=== PATIENT | male | born 1955 | race Caucasian/White ===

== ENCOUNTER 2016-11-29 13:03 | Outpatient (RCR) | payer BC ==
[~2016-11-29 13:03] MED LIST changes: +METO-272 PO; -METO-370 PO; -QUIN40TA14 PO; +QUIN40TA25 PO; -QUIN5TAB11 PO; +QUIN5TAB20 PO
== END 2017-02-19 | disposition home or self-care (01) ==
LOC: CARD 13:03
PROVIDERS: ATTEND Physician Assistant
DX: E78.2 Mixed hyperlipidemia; I50.1 Left ventricular failure, unspecified; I48.0 Paroxysmal atrial fibrillation; I11.0 Hypertensive heart disease with heart failure
CPT/HCPCS: 93225; 93226

== ENCOUNTER → 2016-11-29 | Outpatient (CLI) | payer BC ==
[~2016-11-29] MED LIST: BUSP7.5T5 PO; CEFD300C3 PO; DRON400T2 PO; ENXP100I SC; HYDR-2890 PO; HYDR25TA4 PO; METO-370 PO; MULT-406 PO; NAPR220T76 PO; PRAV20TA3 PO; QUIN40TA PO; QUIN40TA14 PO; QUIN5TAB11 PO; RIVA20TA PO; SOTA80TA PO; SOTA80TA22 PO; Sotalol Hcl PO; THIA100T7 PO; WRF5T PO
== END ==
LOC: CARD 12:58
PROVIDERS: ATTEND Physician Assistant
DX: I48.0 Paroxysmal atrial fibrillation; I10 Essential (primary) hypertension; I50.1 Left ventricular failure, unspecified; E78.2 Mixed hyperlipidemia
CPT/HCPCS: 93306

== ENCOUNTER → 2017-09-05 | Outpatient (CLI) | payer BC, OTHER ==
[~2017-09-05] MED LIST changes: -METO-272 PO; +METO-370 PO; +QUIN40TA14 PO; -QUIN40TA25 PO; +QUIN5TAB11 PO; -QUIN5TAB20 PO; -THIA100T7 PO; +THIA100T80 PO
[2017-09-05 08:07] LABS: CHOLESTEROL 168 MG/DL (< 200); HDL CHOLESTEROL 47 MG/DL (40-60)
[2017-09-05 08:24] LABS: TRIGLYCERIDES 120 MG/DL (<150); VLDL CHOLESTEROL 24 MG/DL (5-40)
[2017-09-05 12:34] LABS: ALANINE AMINOTRANSFERASE 25 U/L (0-55); ALBUMIN 4.2 GM/DL (3.2-4.5); ALKALINE PHOSPHATASE 60 U/L (40-136); BILIRUBIN,TOTAL 0.4 MG/DL (0.1-1.0); BUN/CREATININE RATIO 10; CALCIUM 9.7 MG/DL (8.5-10.1); CARBON DIOXIDE 22 MMOL/L (21-32); CHLORIDE 107 MMOL/L (98-107); CREATININE SERUM 0.87 MG/DL (0.60-1.30); GFR ESTIMATED > 60; GLUCOSE 112 MG/DL (70-105); POTASSIUM 4.4 MMOL/L (3.6-5.0); SODIUM 141 MMOL/L (135-145); TOTAL PROTEIN 7.6 GM/DL (6.4-8.2)
== END ==
LOC: LAB 07:32
PROVIDERS: ATTEND Internal Medicine Interventional Cardiology
DX: E78.2 Mixed hyperlipidemia (principal)
CPT/HCPCS: 36415; 80053; 80061

== ENCOUNTER → 2017-09-16 | Day surgery (SDC) | payer BC ==
[~2017-09-16] VITALS: Ht 180.3 cm; Wt 88.0 kg
[~2017-09-16] MED LIST changes: +LIDOCAINE 1% INJ 20 ML 20 ML VIAL ONE; +THIA100T7 PO; -THIA100T80 PO
--- OUTSIDE RECORDS SUMMARY | 2017-09-16 07:26 | XMS REPORT | Clinical Summary ---
Author Author [facility] Organization [facility] Address Unknown Phone Unavailable Care Team Providers Care Gas Plant Technician Name Role Phone Nava Fletcher MD PCP Source Comments Some departments are not documenting in the electronic medical record. If you do not see the information that you expected, contact Release of Information in the Health Information Management department at [phone] for further assistance in locating additional records.[facility] Allergies Active Allergy Reactions Severity Noted Date Comments Seasonal Allergies EYE IRRITATION, Low 03/03/2016 RHINORRHEA, SNEEZING, COUGH Current Medications Prescription Sig. Disp. Refills Start End Date Status Date dronedarone (MULTAQ) 400 Take 400 mg by mouth Active mg tablet twice daily with meals. rivaroxaban (XARELTO) 20 Take 20 mg by mouth daily Active mg tablet with dinner. Take with food. metoprolol XL (TOPROL XL) Take 50 mg by mouth Active 50 mg extended release daily. tablet quinapril (ACCUPRIL) 40 Take 40 mg by mouth at Active mg tablet bedtime daily. hydroCHLOROthiazide Take 25 mg by mouth every Active (HYDRODIURIL) 25 mg morning. tablet pravastatin (PRAVACHOL) Take 20 mg by mouth at Active 20 mg tablet bedtime daily. MULTIVITAMIN PO Take by mouth. Active busPIRone (BUSPAR) 10 mg Take 10 mg by mouth Active tablet daily. Active Problems No known active problems Family History Medical History Relation Name Comments Diabetes Father Heart Attack Father Cancer Mother Cancer Sister Relation Name Status Comments Father heart attack,leg amputated (Age 74) Maternal Grandfather (Age 80s) Maternal Grandmother (Age 99) Mother cancer Lymph nodes (Age 60) Paternal Grandfather Paternal Grandmother Sister leukemia (Age 25) Social History Tobacco Use Types Packs/Day Years Used Date Former Smoker Quit: 12/04/2015 Smokeless Tobacco: Never Used Alcohol Use Drinks/Week oz/Week Comments No Sex Assigned at Date Recorded Not on file Last Filed Vital Signs Vital Sign Reading Time Taken Blood Pressure 130/84 03/24/2016 7:36 AM CDT Pulse 71 03/24/2016 7:36 AM CDT Temperature - - Respiratory Rate - - Oxygen Saturation - - Inhaled Oxygen - - Concentration Weight 82.3 kg (181 lb 6.4 oz) 03/24/2016 7:36 AM CDT Height 180.3 cm (5' 11") 03/24/2016 7:36 AM CDT Body Mass Index 25.3 03/24/2016 7:36 AM CDT Plan of Treatment Health Maintenance Due Date Last Done Comments HEPATITIS C SCREENING 1956 PHYSICAL (COMPREHENSIVE) 12/04/1963 EXAM PERTUSSIS VACCINE 12/04/1967 HIV SCREENING 12/04/1971 TETANUS VACCINE 1973 COLORECTAL CANCER 2006 SCREENING SHINGLES VACCINE 2016 INFLUENZA VACCINE 02/20/2018 Results Not on filefrom Last 3 Months
--- OUTSIDE RECORDS SUMMARY | 2017-09-16 07:29 | XMS REPORT | Continuity of Care Document ---
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 QUALITY SPECIALIST Ot Z86.718 PERSONAL HISTORY OF OTHER VENOUS THROMBO 09/05/2017 NAVA FLETCHER DO Ot I82.492 ACUTE EMBOLISM AND THROMBOSIS OF DEEP VE 09/05/2017 JULIEN DAMON Ot E66.9 OBESITY, UNSPECIFIED 09/05/2017 JULIEN DAMON Ot I10 ESSENTIAL (PRIMARY) HYPERTENSION 09/05/2017 JULIEN DAMON Ot I48.0 PAROXYSMAL ATRIAL FIBRILLATION 09/05/2017 JULIEN DAMON Ot Z68.30 BODY MASS INDEX (BMI) 30.0-30.9, ADULT 09/05/2017 HALEY BAUMAN MD Ot I10 ESSENTIAL (PRIMARY) HYPERTENSION 09/05/2017 HALEY BAUMAN MD Ot I48.0 PAROXYSMAL ATRIAL FIBRILLATION 09/05/2017 JULIEN DAMON Ot E78.2 MIXED HYPERLIPIDEMIA 09/05/2017 JULIEN DAMON Ot I10 ESSENTIAL (PRIMARY) HYPERTENSION 09/05/2017 JULIEN DAMON Ot I48.0 PAROXYSMAL ATRIAL FIBRILLATION 09/05/2017 JULIEN DAMON Ot I50.1 LEFT VENTRICULAR FAILURE 09/05/2017 JULIEN DAMON Ot E78.2 MIXED HYPERLIPIDEMIA 09/05/2017 JULIEN DAMON Ot I11.0 HYPERTENSIVE HEART DISEASE WITH HEART FA 09/05/2017 JULIEN DAMON Ot I48.0 PAROXYSMAL ATRIAL FIBRILLATION 09/05/2017 JULIEN DAMON Ot I50.1 LEFT VENTRICULAR FAILURE, UNSPECIFIED 09/06/2017 Pavan WESTON MD Ot E78.2 MIXED HYPERLIPIDEMIA Procedures There is no data. Results Test Result Range Automated blood complete blood count (hemogram) panel - 01/14/16 08:08 Blood leukocytes automated count (number/volume) 5.4 10*3/uL 4.3-11.0 Blood erythrocytes automated count (number/volume) 4.75 10*6/uL 4.35-5.85 Venous blood hemoglobin measurement (mass/volume) 15.5 g/dL 13.3-17.7 Blood hematocrit (volume fraction) 45 % 40-54 Automated erythrocyte mean corpuscular volume 95 [foz_us] 80-99 Automated erythrocyte mean corpuscular hemoglobin (mass per erythrocyte) 33 pg 25-34 Automated erythrocyte mean corpuscular hemoglobin concentration measurement ( mass/volume) 35 g/dL 32-36 Automated erythrocyte distribution width ratio 12.4 % 10.0-14.5 Automated blood platelet count (count/volume) 196 10*3/uL 130-400 Automated blood platelet mean volume measurement 10.4 [foz_us] 7.4-10.4 Complete urinalysis with reflex to culture - 01/14/16 08:08 Urine color determination YELLOW NRG Urine clarity determination CLEAR NRG Urine pH measurement by test strip 7 5-9 Specific gravity of urine by test strip 1.010 1.016- 1.022 Urine protein assay by test strip, semi-quantitative NEGATIVE NEGATIVE Urine glucose detection by automated test strip NEGATIVE NEGATIVE Erythrocytes detection in urine sediment by light microscopy 1+ NEGATIVE Urine ketones detection by automated test strip NEGATIVE NEGATIVE Urine nitrite detection by test strip NEGATIVE NEGATIVE Urine total bilirubin detection by test strip NEGATIVE NEGATIVE Urine urobilinogen measurement by automated test strip (mass/volume) NORMAL NORMAL Urine leukocyte esterase detection by dipstick 1+ NEGATIVE Automated urine sediment erythrocyte count by microscopy (number/high power field) [HPF] NRG Automated urine sediment leukocyte count by microscopy (number/high power field ) [HPF] NRG Bacteria detection in urine sediment by light microscopy TRACE NRG Crystals detection in urine sediment by light microscopy NONE NRG Casts detection in urine sediment by light microscopy NONE NRG Mucus detection in urine sediment by light microscopy NEGATIVE NRG Complete urinalysis with reflex to culture NO NRG Comprehensive metabolic panel - 01/14/16 08:08 Serum or plasma sodium measurement (moles/volume) 139 mmol/L 135-145 Serum or plasma potassium measurement (moles/volume) 4.0 mmol/L 3.6-5.0 Serum or plasma chloride measurement (moles/volume) 107 mmol/L 98-107 Carbon dioxide 22 mmol/L 21-32 Serum or plasma anion gap determination (moles/volume) 10 mmol/L 5-14 Serum or plasma urea nitrogen measurement (mass/volume) 13 mg/dL 7-18 Serum or plasma creatinine measurement (mass/volume) 0.89 mg/dL 0.60-1.30 Serum or plasma urea nitrogen/creatinine mass ratio 15 NRG Serum or plasma creatinine measurement with calculation of estimated glomerular filtration rate > NRG Serum or plasma glucose measurement (mass/volume) 105 mg/dL 70-105 Serum or plasma calcium measurement (mass/volume) 9.4 mg/dL 8.5-10.1 Serum or plasma total bilirubin measurement (mass/volume) 0.4 mg/dL 0.1-1.0 Serum or plasma alkaline phosphatase measurement (enzymatic activity/volume) 51 U/L 40-136 Serum or plasma aspartate aminotransferase measurement (enzymatic activity/ volume) 25 U/L 5-34 Serum or plasma alanine aminotransferase measurement (enzymatic activity/volume ) 24 U/L 0-55 Serum or plasma protein measurement (mass/volume) 6.9 g/dL 6.4-8.2 Serum or plasma albumin measurement (mass/volume) 4.1 g/dL 3.2-4.5 Lipid 1996 panel - 01/14/16 08:08 Serum or plasma triglyceride measurement (mass/volume) 78 mg/dL <150 Serum or plasma cholesterol measurement (mass/volume) 200 mg/dL < 200 Serum or plasma cholesterol in HDL measurement (mass/volume) 51 mg/ dL 40-60 Cholesterol in LDL [mass/volume] in serum or plasma by direct assay 135 mg/dL 1-129 Serum or plasma cholesterol in VLDL measurement (mass/volume) 16 mg/ dL 5-40 PT panel in platelet poor plasma by coagulation assay - 01/14/16 08:08 Prothrombin time (PT) in platelet poor plasma by coagulation assay 15.6 s 12.2-14.7 INR in platelet poor plasma or blood by coagulation assay 1.3 0.8-1.4 Activated partial thromboplastin time (aPTT) in platelet poor plasma bycoagulation assay - 01/14/16 08:08 Activated partial thromboplastin time (aPTT) in platelet poor plasma bycoagulation assay 33 s 24-35 Automated blood complete blood count (hemogram) panel - 03/31/16 08:45 Blood leukocytes automated count (number/volume) 6.2 10*3/uL 4.3-11.0 Blood erythrocytes automated count (number/volume) 4.81 10*6/uL 4.35-5.85 Venous blood hemoglobin measurement (mass/volume) 15.7 g/dL 13.3-17.7 Blood hematocrit (volume fraction) 46 % 40-54 Automated erythrocyte mean corpuscular volume 96 [foz_us] 80-99 Automated erythrocyte mean corpuscular hemoglobin (mass per erythrocyte) 33 pg 25-34 Automated erythrocyte mean corpuscular hemoglobin concentration measurement ( mass/volume) 34 g/dL 32-36 Automated erythrocyte distribution width ratio 12.4 % 10.0-14.5 Automated blood platelet count (count/volume) 229 10*3/uL 130-400 Automated blood platelet mean volume measurement 10.4 [foz_us] 7.4-10.4 PT panel in platelet poor plasma by coagulation assay - 03/31/16 08:45 Prothrombin time (PT) in platelet poor plasma by coagulation assay 16.1 s 12.2-14.7 INR in platelet poor plasma or blood by coagulation assay 1.3 0.8-1.4 Activated partial thromboplastin time (aPTT) in platelet poor plasma bycoagulation assay - 03/31/16 08:45 Activated partial thromboplastin time (aPTT) in platelet poor plasma bycoagulation assay 35 s 24-35 Comprehensive metabolic panel - 03/31/16 08:45 Serum or plasma sodium measurement (moles/volume) 139 mmol/L 135-145 Serum or plasma potassium measurement (moles/volume) 3.9 mmol/L 3.6-5.0 Serum or plasma chloride measurement (moles/volume) 103 mmol/L 98-107 Carbon dioxide 26 mmol/L 21-32 Serum or plasma anion gap determination (moles/volume) 10 mmol/L 5-14 Serum or plasma urea nitrogen measurement (mass/volume) 19 mg/dL 7-18 Serum or plasma creatinine measurement (mass/volume) 1.04 mg/dL 0.60-1.30 Serum or plasma urea nitrogen/creatinine mass ratio 18 NRG Serum or plasma creatinine measurement with calculation of estimated glomerular filtration rate > NRG Serum or plasma glucose measurement (mass/volume) 86 mg/dL 70-105 Serum or plasma calcium measurement (mass/volume) 9.5 mg/dL 8.5-10.1 Serum or plasma total bilirubin measurement (mass/volume) 0.5 mg/dL 0.1-1.0 Serum or plasma alkaline phosphatase measurement (enzymatic activity/volume) 50 U/L 40-136 Serum or plasma aspartate aminotransferase measurement (enzymatic activity/ volume) 29 U/L 5-34 Serum or plasma alanine aminotransferase measurement (enzymatic activity/volume ) 35 U/L 0-55 Serum or plasma protein measurement (mass/volume) 7.8 g/dL 6.4-8.2 Serum or plasma albumin measurement (mass/volume) 4.5 g/dL 3.2-4.5 Methicillin resistant Staphylococcus aureus (MRSA) screening culture - 08:45 Methicillin resistant Staphylococcus aureus (MRSA) screening culture NEG NRG Automated blood complete blood count (hemogram) panel - 05/04/16 08:52 Blood leukocytes automated count (number/volume) 6.7 10*3/uL 4.3-11.0 Blood erythrocytes automated count (number/volume) 4.44 10*6/uL 4.35-5.85 Venous blood hemoglobin measurement (mass/volume) 14.6 g/dL 13.3-17.7 Blood hematocrit (volume fraction) 43 % 40-54 Automated erythrocyte mean corpuscular volume 96 [foz_us] 80-99 Automated erythrocyte mean corpuscular hemoglobin (mass per erythrocyte) 33 pg 25-34 Automated erythrocyte mean corpuscular hemoglobin concentration measurement ( mass/volume) 34 g/dL 32-36 Automated erythrocyte distribution width ratio 12.3 % 10.0-14.5 Automated blood platelet count (count/volume) 216 10*3/uL 130-400 Automated blood platelet mean volume measurement 9.9 [foz_us] 7.4-10.4 PT panel in platelet poor plasma by coagulation assay - 05/04/16 08:52 Prothrombin time (PT) in platelet poor plasma by coagulation assay 15.0 s 12.2-14.7 INR in platelet poor plasma or blood by coagulation assay 1.2 0.8-1.4 Activated partial thromboplastin time (aPTT) in platelet poor plasma bycoagulation assay - 05/04/16 08:52 Activated partial thromboplastin time (aPTT) in platelet poor plasma bycoagulation assay 34 s 24-35 Comprehensive metabolic panel - 05/04/16 08:52 Serum or plasma sodium measurement (moles/volume) 139 mmol/L 135-145 Serum or plasma potassium measurement (moles/volume) 3.8 mmol/L 3.6-5.0 Serum or plasma chloride measurement (moles/volume) 106 mmol/L 98-107 Carbon dioxide 22 mmol/L 21-32 Serum or plasma anion gap determination (moles/volume) 11 mmol/L 5-14 Serum or plasma urea nitrogen measurement (mass/volume) 15 mg/dL 7-18 Serum or plasma creatinine measurement (mass/volume) 0.85 mg/dL 0.60-1.30 Serum or plasma urea nitrogen/creatinine mass ratio 18 NRG Serum or plasma creatinine measurement with calculation of estimated glomerular filtration rate > NRG Serum or plasma glucose measurement (mass/volume) 106 mg/dL 70-105 Serum or plasma calcium measurement (mass/volume) 9.5 mg/dL 8.5-10.1 Serum or plasma total bilirubin measurement (mass/volume) 0.3 mg/dL 0.1-1.0 Serum or plasma alkaline phosphatase measurement (enzymatic activity/volume) 49 U/L 40-136 Serum or plasma aspartate aminotransferase measurement (enzymatic activity/ volume) 24 U/L 5-34 Serum or plasma alanine aminotransferase measurement (enzymatic activity/volume ) 21 U/L 0-55 Serum or plasma protein measurement (mass/volume) 6.9 g/dL 6.4-8.2 Serum or plasma albumin measurement (mass/volume) 4.1 g/dL 3.2-4.5 Magnesium - 05/04/16 08:52 Magnesium 2.1 mg/dL 1.8-2.4 THYROID STIMULATING HORMONE - 05/04/16 08:52 THYROID STIMULATING HORMONE 1.46 u[iU]/mL 0.35-4.94 Complete blood count (CBC) with automated white blood cell (WBC) differential - 05/05/16 05:22 Blood leukocytes automated count (number/volume) 6.9 10*3/uL 4.3-11.0 Blood erythrocytes automated count (number/volume) 4.71 10*6/uL 4.35-5.85 Venous blood hemoglobin measurement (mass/volume) 15.5 g/dL 13.3-17.7 Blood hematocrit (volume fraction) 45 % 40-54 Automated erythrocyte mean corpuscular volume 96 [foz_us] 80-99 Automated erythrocyte mean corpuscular hemoglobin (mass per erythrocyte) 33 pg 25-34 Automated erythrocyte mean corpuscular hemoglobin concentration measurement ( mass/volume) 34 g/dL 32-36 Automated erythrocyte distribution width ratio 12.4 % 10.0-14.5 Automated blood platelet count (count/volume) 255 10*3/uL 130-400 Automated blood platelet mean volume measurement 10.4 [foz_us] 7.4-10.4 Automated blood neutrophils/100 leukocytes 57 % 42-75 Automated blood lymphocytes/100 leukocytes 31 % 12-44 Blood monocytes/100 leukocytes 9 % 0-12 Automated blood eosinophils/100 leukocytes 3 % 0-10 Automated blood basophils/100 leukocytes 0 % 0-10 Blood neutrophils automated count (number/volume) 3.9 10*3 1.8-7.8 Blood lymphocytes automated count (number/volume) 2.1 10*3 1.0-4.0 Blood monocytes automated count (number/volume) 0.6 10*3 0.0-1.0 Automated eosinophil count 0.2 10*3/uL 0.0-0.3 Automated blood basophil count (count/volume) 0.0 10*3/uL 0.0-0.1 Whole blood basic metabolic panel - 05/05/16 05:22 Serum or plasma sodium measurement (moles/volume) 138 mmol/L 135-145 Serum or plasma potassium measurement (moles/volume) 3.9 mmol/L 3.6-5.0 Serum or plasma chloride measurement (moles/volume) 105 mmol/L 98-107 Carbon dioxide 23 mmol/L 21-32 Serum or plasma anion gap determination (moles/volume) 10 mmol/L 5-14 Serum or plasma urea nitrogen measurement (mass/volume) 16 mg/dL 7-18 Serum or plasma creatinine measurement (mass/volume) 0.84 mg/dL 0.60-1.30 Serum or plasma urea nitrogen/creatinine mass ratio 19 NRG Serum or plasma creatinine measurement with calculation of estimated glomerular filtration rate > NRG Serum or plasma glucose measurement (mass/volume) 92 mg/dL 70-105 Serum or plasma calcium measurement (mass/volume) 9.4 mg/dL 8.5-10.1 Serum or plasma phosphate measurement (mass/volume) - 05/05/16 05:22 Serum or plasma phosphate measurement (mass/volume) 3.4 mg/dL 2.3-4.7 Magnesium - 05/05/16 05:22 Magnesium 2.2 mg/dL 1.8-2.4 Complete blood count (CBC) with automated white blood cell (WBC) differential - 05/06/16 04:15 Blood leukocytes automated count (number/volume) 8.1 10*3/uL 4.3-11.0 Blood erythrocytes automated count (number/volume) 4.70 10*6/uL 4.35-5.85 Venous blood hemoglobin measurement (mass/volume) 15.2 g/dL 13.3-17.7 Blood hematocrit (volume fraction) 45 % 40-54 Automated erythrocyte mean corpuscular volume 96 [foz_us] 80-99 Automated erythrocyte mean corpuscular hemoglobin (mass per erythrocyte) 32 pg 25-34 Automated erythrocyte mean corpuscular hemoglobin concentration measurement ( mass/volume) 34 g/dL 32-36 Automated erythrocyte distribution width ratio 12.3 % 10.0-14.5 Automated blood platelet count (count/volume) 234 10*3/uL 130-400 Automated blood platelet mean volume measurement 10.4 [foz_us] 7.4-10.4 Automated blood neutrophils/100 leukocytes 55 % 42-75 Automated blood lymphocytes/100 leukocytes 32 % 12-44 Blood monocytes/100 leukocytes 10 % 0-12 Automated blood eosinophils/100 leukocytes 3 % 0-10 Automated blood basophils/100 leukocytes 1 % 0-10 Blood neutrophils automated count (number/volume) 4.4 10*3 1.8-7.8 Blood lymphocytes automated count (number/volume) 2.6 10*3 1.0-4.0 Blood monocytes automated count (number/volume) 0.8 10*3 0.0-1.0 Automated eosinophil count 0.2 10*3/uL 0.0-0.3 Automated blood basophil count (count/volume) 0.0 10*3/uL 0.0-0.1 Whole blood basic metabolic panel - 05/06/16 04:15 Serum or plasma sodium measurement (moles/volume) 138 mmol/L 135-145 Serum or plasma potassium measurement (moles/volume) 4.1 mmol/L 3.6-5.0 Serum or plasma chloride measurement (moles/volume) 107 mmol/L 98-107 Carbon dioxide 22 mmol/L 21-32 Serum or plasma anion gap determination (moles/volume) 9 mmol/L 5-14 Serum or plasma urea nitrogen measurement (mass/volume) 19 mg/dL 7-18 Serum or plasma creatinine measurement (mass/volume) 0.85 mg/dL 0.60-1.30 Serum or plasma urea nitrogen/creatinine mass ratio 22 NRG Serum or plasma creatinine measurement with calculation of estimated glomerular filtration rate > NRG Serum or plasma glucose measurement (mass/volume) 97 mg/dL 70-105 Serum or plasma calcium measurement (mass/volume) 9.2 mg/dL 8.5-10.1 Serum or plasma phosphate measurement (mass/volume) - 05/06/16 04:15 Serum or plasma phosphate measurement (mass/volume) 4.2 mg/dL 2.3-4.7 Magnesium - 05/06/16 04:15 Magnesium 2.3 mg/dL 1.8-2.4 Automated blood complete blood count (hemogram) panel - 05/13/16 08:33 Blood leukocytes automated count (number/volume) 6.8 10*3/uL 4.3-11.0 Blood erythrocytes automated count (number/volume) 4.39 10*6/uL 4.35-5.85 Venous blood hemoglobin measurement (mass/volume) 14.4 g/dL 13.3-17.7 Blood hematocrit (volume fraction) 42 % 40-54 Automated erythrocyte mean corpuscular volume 96 [foz_us] 80-99 Automated erythrocyte mean corpuscular hemoglobin (mass per erythrocyte) 33 pg 25-34 Automated erythrocyte mean corpuscular hemoglobin concentration measurement ( mass/volume) 34 g/dL 32-36 Automated erythrocyte distribution width ratio 12.4 % 10.0-14.5 Automated blood platelet count (count/volume) 214 10*3/uL 130-400 Automated blood platelet mean volume measurement 10.6 [foz_us] 7.4-10.4 PT panel in platelet poor plasma by coagulation assay - 05/13/16 08:33 Prothrombin time (PT) in platelet poor plasma by coagulation assay 16.1 s 12.2-14.7 INR in platelet poor plasma or blood by coagulation assay 1.3 0.8-1.4 Activated partial thromboplastin time (aPTT) in platelet poor plasma bycoagulation assay - 05/13/16 08:33 Activated partial thromboplastin time (aPTT) in platelet poor plasma bycoagulation assay 35 s 24-35 Comprehensive metabolic panel - 05/13/16 08:33 Serum or plasma sodium measurement (moles/volume) 142 mmol/L 135-145 Serum or plasma potassium measurement (moles/volume) 4.3 mmol/L 3.6-5.0 Serum or plasma chloride measurement (moles/volume) 110 mmol/L 98-107 Carbon dioxide 25 mmol/L 21-32 Serum or plasma anion gap determination (moles/volume) 7 mmol/L 5-14 Serum or plasma urea nitrogen measurement (mass/volume) 15 mg/dL 7-18 Serum or plasma creatinine measurement (mass/volume) 0.97 mg/dL 0.60-1.30 Serum or plasma urea nitrogen/creatinine mass ratio 15 NRG Serum or plasma creatinine measurement with calculation of estimated glomerular filtration rate > NRG Serum or plasma glucose measurement (mass/volume) 109 mg/dL 70-105 Serum or plasma calcium measurement (mass/volume) 9.1 mg/dL 8.5-10.1 Serum or plasma total bilirubin measurement (mass/volume) 0.3 mg/dL 0.1-1.0 Serum or plasma alkaline phosphatase measurement (enzymatic activity/volume) 55 U/L 40-136 Serum or plasma aspartate aminotransferase measurement (enzymatic activity/ volume) 26 U/L 5-34 Serum or plasma alanine aminotransferase measurement (enzymatic activity/volume ) 25 U/L 0-55 Serum or plasma protein measurement (mass/volume) 6.6 g/dL 6.4-8.2 Serum or plasma albumin measurement (mass/volume) 3.9 g/dL 3.2-4.5 Methicillin resistant Staphylococcus aureus (MRSA) screening culture - 08:33 Methicillin resistant Staphylococcus aureus (MRSA) screening culture NEG NRG Comprehensive metabolic panel - 09/05/17 07:45 Serum or plasma sodium measurement (moles/volume) 141 mmol/L 135-145 Serum or plasma potassium measurement (moles/volume) 4.4 mmol/L 3.6-5.0 Serum or plasma chloride measurement (moles/volume) 107 mmol/L 98-107 Carbon dioxide 22 mmol/L 21-32 Serum or plasma anion gap determination (moles/volume) 12 mmol/L 5-14 Serum or plasma urea nitrogen measurement (mass/volume) 9 mg/dL 7-18 Serum or plasma creatinine measurement (mass/volume) 0.87 mg/dL 0.60-1.30 Serum or plasma urea nitrogen/creatinine mass ratio 10 NRG Serum or plasma creatinine measurement with calculation of estimated glomerular filtration rate > NRG Serum or plasma glucose measurement (mass/volume) 112 mg/dL 70-105 Serum or plasma calcium measurement (mass/volume) 9.7 mg/dL 8.5-10.1 Serum or plasma total bilirubin measurement (mass/volume) 0.4 mg/dL 0.1-1.0 Serum or plasma alkaline phosphatase measurement (enzymatic activity/volume) 60 U/L 40-136 Serum or plasma aspartate aminotransferase measurement (enzymatic activity/ volume) 38 U/L 5-34 Serum or plasma alanine aminotransferase measurement (enzymatic activity/volume ) 25 U/L 0-55 Serum or plasma protein measurement (mass/volume) 7.6 g/dL 6.4-8.2 Serum or plasma albumin measurement (mass/volume) 4.2 g/dL 3.2-4.5 Lipid 1996 panel - 09/05/17 07:45 Serum or plasma triglyceride measurement (mass/volume) 120 mg/dL <150 Serum or plasma cholesterol measurement (mass/volume) 168 mg/dL < 200 Serum or plasma cholesterol in HDL measurement (mass/volume) 47 mg/ dL 40-60 Cholesterol in LDL [mass/volume] in serum or plasma by direct assay 102 mg/dL 1-129 Serum or plasma cholesterol in VLDL measurement (mass/volume) 24 mg/ dL 5-40 Encounters ACCT No. Visit Date/Time Discharge Status Pt. Type Provider Facility Loc./Unit Complaint [id number] 09/05/2017 07:32:00 09/05/2017 23:59:59 CLS Outpatient Pavan WESTON MD [facility] LAB E78.2 [id number] 02/20/2017 14:15:00 02/20/2017 23:59:59 CLS Preadmit JULIEN DAMON [facility] CARD AFIB,CHRONIC CHF [id number] 11/29/2016 13:03:00 02/19/2017 00:01:00 DIS Outpatient JULIEN DAMON [facility] CARD AFIB, CHRONIC CHF [id number] 11/29/2016 12:58:00 11/29/2016 23:59:59 CLS Outpatient JULIEN DAMON [facility] CARD AFIB, CHRONIC CHF [id number] 05/13/2016 08:03:00 05/13/2016 11:26:00 DIS Outpatient Pavan WESTON MD [facility] CATH AFIB [id number] 05/04/2016 08:30:00 05/06/2016 12:00:00 DIS Inpatient HALEY BAUMAN MD [facility] ICU AFIB [id number] 03/31/2016 08:16:00 03/31/2016 15:40:00 DIS Outpatient HALEY BAUMAN MD [facility] CATH PAF,HTN [id number] 01/14/2016 07:40:00 01/15/2016 10:40:00 DIS Outpatient HALEY BAUMAN MD [facility] CATH AF,CARDIOMYOPATHY [id number] 12/19/2015 14:39:00 12/19/2015 23:59:59 CLS Outpatient HALEY BAUMAN MD [facility] CARD A-FIB; DVT; HTN; OBESITY [id number] 11/26/2015 08:26:00 11/26/2015 23:59:59 CLS Outpatient JULIEN DAMON [facility] CARD AFIB,DVT,HTN ,OBESITY [id number] 11/19/2015 11:09:00 11/19/2015 23:59:59 CLS Outpatient NAVA FLETCHER DO [facility] RAD DVT, EDEMA, LEG PAIN,ATRIAL FIBRILLATION [id number] 11/10/2015 16:47:00 11/10/2015 23:59:59 CLS Outpatient JENNIFER ALVAREZ APRN [facility] CARD LEG SWELLING, CARDIAC ARYTHMIA, HISTORY OF DVT [id number] 06/24/2014 15:30:00 06/24/2014 23:59:59 CLS Outpatient PRESTONNarayanDARRON ROA [facility] RAD HEMATURIA [id number] 10/03/2013 12:40:00 10/03/2013 23:59:59 CLS Outpatient HALEY BAUMAN MD [facility] CARD DVT,ADEMA LLE,HTN [id number] 09/25/2013 08:41:00 09/25/2013 23:59:59 CLS Outpatient HALEY BAUMAN MD [facility] LAB DVT,EDEMA OF LOWER LEG, HTN [id number] 10/10/2012 15:11:00 10/10/2012 23:59:59 CLS Outpatient NAVA FLETCHER DO [facility] RAD LEFT CALF SWELLING , HX OF DVT [id number] 12/01/2014 17:33:00 Document Registration [id number] 12/01/2014 17:33:00 Document Registration [id number] 12/01/2014 17:33:00 Document Registration [id number] 12/01/2014 17:32:00 Document Registration [id number] 02/18/2012 13:00:00 Document Registration [id number] 01/07/2012 13:35:00 Document Registration [id number] 11/23/2011 14:07:00 Document Registration [id number] 10/25/2011 17:55:00 Document Registration [id number] 08/10/2011 15:19:00 Document Registration [id number] 02/09/2010 08:44:00 Document Registration [id number] 06/29/2014 12:38:20 ACT Document Registration 05/201612/06/2016 16:02:10 12/06/2016 23:59:59 CLS Outpatient Nava Fletcher
[2017-09-16 07:57] VITALS: BP 134/84
--- NOTE | 2017-09-16 08:45 | Implantation of Loop Monitor ---
Implant of Loop Monitior PROCEDURE PHYSICIAN: Blue Chandra MD IMPLANTATION OF LOOP MONITOR REPORT DATE OF PROCEDURE: 09/16/17 ATTENDING PHYSICIAN: Dr. Lorne Chandra. REFERRING PHYSICIAN: PERFORMING PHYSICIAN: Dr. Lorne Chandra. INDICATION: Long-term surveillance of atrial fibrillation PREOP DIAGNOSIS: Long-term surveillance of atrial fibrillation POSTOP DIAGNOSIS: Atrial fibrillation, s/p implantation of loop recorder. PROCEDURE DETAILS: The patient is a 61 male with history of paroxysmal atrial fibrillation requiring long-term surveillance. Therefore implantable loop recorder was discussed and agreed with the patient. Informed consent was taken. All risks and complications were discussed at length. The patient was draped and prepped in the usual sterile fashion. Local anesthesia was lidocaine, which was given in the substernal area close to the 4th intercostal space. [employer] Linq Loop monitor was implanted according to the protocol. Steri-Strips were placed at the end of the procedure. There were no complications and the patient tolerated the procedure well. ANESTHESIA: Local anesthesia with lidocaine. COMPLICATIONS: None CONTRAST/FLUOROSCOPY: None CONCLUSION: 1. Successful implantation of loop monitor for tooth cutter surveillance of atrial fibrillation. 2. No complication and the patient tolerated the procedure well. Blue Chandra MD, RS, CCDS Cardiac Electrophysiology Pavan CHANDRA MD Sep 16, 2017 8:45 am
== END | disposition home or self-care (01) ==
LOC: CATH 07:23
PROVIDERS: ATTEND Internal Medicine Interventional Cardiology
DX: I48.0 Paroxysmal atrial fibrillation (principal); R00.1 Bradycardia, unspecified; I11.0 Hypertensive heart disease with heart failure; I50.9 Heart failure, unspecified; E78.2 Mixed hyperlipidemia; M79.605 Pain in left leg; Z86.718 Personal history of other venous thrombosis and embolism; Z79.01 Long term (current) use of anticoagulants; Z79.899 Other long term (current) drug therapy; Z87.891 Personal history of nicotine dependence
CPT/HCPCS: 33282

== ENCOUNTER → 2017-12-12 | Outpatient (CLI) | payer BC ==
[~2017-12-12] MED LIST changes: -LIDOCAINE 1% INJ 20 ML 20 ML VIAL ONE; -THIA100T7 PO; +THIA100T80 PO
[2017-12-12 07:44] LABS: ALANINE AMINOTRANSFERASE 17 U/L (0-55); ALBUMIN 3.9 GM/DL (3.2-4.5); ALKALINE PHOSPHATASE 62 U/L (40-136); BILIRUBIN,TOTAL 0.3 MG/DL (0.1-1.0); BUN/CREATININE RATIO 13; CALCIUM 9.5 MG/DL (8.5-10.1); CARBON DIOXIDE 26 MMOL/L (21-32); CHLORIDE 110 MMOL/L (98-107); CHOLESTEROL 160 MG/DL (< 200); CREATININE SERUM 0.83 MG/DL (0.60-1.30); GFR ESTIMATED > 60; GLUCOSE 115 MG/DL (70-105); HDL CHOLESTEROL 38 MG/DL (40-60); POTASSIUM 3.9 MMOL/L (3.6-5.0); SODIUM 142 MMOL/L (135-145); TOTAL PROTEIN 6.9 GM/DL (6.4-8.2); TRIGLYCERIDES 107 MG/DL (<150); VLDL CHOLESTEROL 21 MG/DL (5-40)
== END ==
LOC: LAB 07:14
PROVIDERS: ATTEND Physician Assistant
DX: I10 Essential (primary) hypertension (principal); E78.2 Mixed hyperlipidemia
CPT/HCPCS: 36415; 80053; 80061

== ENCOUNTER → 2018-06-05 | Outpatient (CLI) | payer BC | LOC: CARD 12:49 | PROVIDERS: ATTEND Internal Medicine Cardiovascular Disease | DX: I48.0 Paroxysmal atrial fibrillation (principal); I11.0 Hypertensive heart disease with heart failure; I50.9 Heart failure, unspecified; R00.1 Bradycardia, unspecified; I08.1 Rheumatic disorders of both mitral and tricuspid valves | CPT/HCPCS: 93306 ==

== ENCOUNTER → 2018-09-08 | Outpatient (CLI) | payer BC ==
[~2018-09-08] MED LIST changes: -RIVA20TA PO; +RIVA20TA2 PO
[2018-09-08 08:34] LABS: ALANINE AMINOTRANSFERASE 15 U/L (0-55); ALKALINE PHOSPHATASE 61 U/L (40-136); BILIRUBIN,TOTAL 0.3 MG/DL (0.1-1.0); BUN/CREATININE RATIO 13; CALCIUM 9.5 MG/DL (8.5-10.1); CARBON DIOXIDE 27 MMOL/L (21-32); CHLORIDE 106 MMOL/L (98-107); CHOLESTEROL 152 MG/DL (< 200); CREATININE SERUM 0.85 MG/DL (0.60-1.30); GFR ESTIMATED > 60; GLUCOSE 105 MG/DL (70-105); HDL CHOLESTEROL 41 MG/DL (40-60); POTASSIUM 4.1 MMOL/L (3.6-5.0); SODIUM 142 MMOL/L (135-145); TOTAL PROTEIN 6.9 GM/DL (6.4-8.2); TRIGLYCERIDES 63 MG/DL (<150); VLDL CHOLESTEROL 13 MG/DL (5-40)
== END ==
LOC: LAB 07:58
PROVIDERS: ATTEND Physician Assistant
DX: I10 Essential (primary) hypertension (principal); E78.2 Mixed hyperlipidemia
CPT/HCPCS: 36415; 80053; 80061

== ENCOUNTER → 2018-10-09 | Day surgery (SDC) | payer BC ==
[~2018-10-09] VITALS: Ht 177.8 cm; Wt 88.9 kg
[~2018-10-09] MED LIST changes: +ESCI10TA PO; +HEParin (CATH LAB) 0 ML IV ONE; +LIDOCAINE 1% INJ 20 ML 20 ML VIAL ONE; +NS IV 1000 ML 1,000 ML IV SCH; +NS IV 1000 ML 1,000 ML ONE; -SOTA80TA PO; +STL80T PO
--- OUTSIDE RECORDS SUMMARY | 2018-10-09 07:01 | XMS REPORT | Clinical Summary ---
Author Author [facility] Organization [facility] Address Unknown Phone Unavailable Care Team Providers Care Tour Agent Name Role Phone Nava Fletcher MD PCP Source Comments Some departments are not documenting in the electronic medical record. If you d o not see the information that you expected, contact Release of Information in [facility] [employer] Information Management department at [phone] for further assistan ce in locating additional records.[facility] Allergies Comments Active Allergy Reactions Severity Noted Date Seasonal Allergies EYE Low 03/03/2016 IRRITATION, RHINORRHEA, SNEEZING, COUGH Medications End Date Status Medication Sig Dispensed Refills Start Date Active dronedarone (MULTAQ) 400 Take 400 mg 0 mg tablet by mouth twice daily with meals. Active rivaroxaban (XARELTO) 20 Take 20 mg by 0 mg tablet mouth daily with dinner. Take with food. Active metoprolol XL (TOPROL XL) Take 50 mg by 0 50 mg extended release mouth daily. tablet Active quinapril (ACCUPRIL) 40 Take 40 mg by 0 mg tablet mouth at bedtime daily. Active hydroCHLOROthiazide Take 25 mg by 0 (HYDRODIURIL) 25 mg mouth every tablet morning. Active pravastatin (PRAVACHOL) Take 20 mg by 0 20 mg tablet mouth at bedtime daily. Active MULTIVITAMIN PO Take by 0 mouth. Active busPIRone (BUSPAR) 10 mg Take 10 mg by 0 tablet mouth daily. Active Problems No known active problems Family History Medical History Relation Name Comments Diabetes Father Heart Attack Father Cancer Mother Cancer Sister Relation Name Status Comments Father heart attack,leg amputated (Age 74) Maternal Grandfather (Age 80s) Maternal Grandmother (Age 99) Mother cancer Lymph nodes (Age 60) Paternal Grandfather Paternal Grandmother Sister leukemia (Age 25) Social History Date Tobacco Use Types Packs/Day Years Used Quit: 12/04/2015 Former Smoker Smokeless Tobacco: Never Used Alcohol Use Drinks/Week oz/Week Comments No Sex Assigned at Date Recorded Not on file Industry Job Start Date Occupation Not on file Not on file Not on file Travel End Travel History Travel Start No recent travel history available. Last Filed Vital Signs Time Taken Vital Sign Reading 03/24/2016 7:36 AM CDT Blood Pressure 130/84 03/24/2016 7:36 AM CDT Pulse 71 - Temperature - - Respiratory Rate - - Oxygen Saturation - - Inhaled Oxygen - Concentration 03/24/2016 7:36 AM CDT Weight 82.3 kg (181 lb 6.4 oz) 03/24/2016 7:36 AM CDT Height 180.3 cm (5' 11") 03/24/2016 7:36 AM CDT Body Mass Index 25.3 Plan of Treatment Health Maintenance Due Date Last Done Comments HEPATITIS C SCREENING 1956 PHYSICAL (COMPREHENSIVE) 12/04/1963 EXAM HIV SCREENING 12/04/1971 DTAP/TDAP VACCINES (1 - 1974 Tdap) COLORECTAL CANCER 2006 SCREENING SHINGLES RECOMBINANT 2006 VACCINE (1 of 2) INFLUENZA VACCINE 02/20/2019 Results Not on filefrom Last 3 Months Insurance Type Payer Benefit Subscriber ID Effective Phone Address Plan / Dates Group PPO [facility] xxxxxxxxxxxx 2016- PREF CARE Present BLUE Advance Directives Patient has advance care planning documents on file. For more information, ashia harvey contact: [facility] [address] [place] [address]
--- OUTSIDE RECORDS SUMMARY | 2018-10-09 07:03 | XMS REPORT | Continuity of Care Document ---
Author Organization Unknown Address Unknown Allergies Active Description Code Type Severity Reaction Onset Reported/Identified Relationship to Patient Clinical Status Yes Penicillins [id number] Drug Allergy Unknown swelling, itchi 08/10/2011 Medications There is no data. Problems Date Dx Coded Attending Type Code Diagnosis Diagnosed By 02/09/2010 Ot 211.3 02/09/2010 Ot 569.0 08/10/2011 Ot 719.02 JOINT EFFUSION- UP/ARM 08/10/2011 Ot 959.3 ELB/FOREARM/WRST INJ NOS 08/10/2011 Ot E000.0 CIVILIAN ACTIVITY [...] Ot V64.3 12/01/2014 Ot 453.41 12/01/2014 NAVA LEVIN DO Ot 729.81 12/01/2014 NAVA LEVIN DO Ot V12.51 12/01/2014 HALEY BAUMAN MD Ot 397.0 12/01/2014 HALEY BAUMAN MD Ot 401.9 12/01/2014 MERNA COX, HALEY Blake Ot 416.8 12/01/2014 MERNA COX, HALEY Blake Ot 424.0 12/01/2014 MERNA COX, HALEY Blake Ot 782.3 12/01/2014 MERNA COX, HALEY Blake Ot 305.1 12/01/2014 MERNA COX, HALEY Blake Ot 401.9 12/01/2014 MERNA COX, HALEY Blake Ot 453.40 12/01/2014 MERNA COX, HALEY Blake Ot 782.3 12/01/2014 ALONSO DARRON Pavan SUNG Ot 599.70 11/11/2015 JENNIFER ALVAREZ APRN Ot [...] HISTORY OF OTHER VENOUS THROMBO 11/20/2015 NAVA LEVIN DO Ot I82.492 ACUTE EMBOLISM AND THROMBOSIS OF DEEP VE 11/20/2015 NAVA LEVIN DO Ot I82.492 ACUTE EMBOLISM AND THROMBOSIS [...] SPECIFIED SOFT TISSUE DISORDERS 11/27/2015 JENNIFER ALVAREZ APRN Ot Z86.718 PERSONAL HISTORY OF OTHER VENOUS THROMBO 12/12/2015 ISABELNAVA PERES DO S Ot I82.492 ACUTE EMBOLISM AND [...] ACUTE VENOUS EMBOLISM THROMBOSIS DEEP 12/19/2015 NAVA LEVIN DO S Ot 729.81 SWELLING OF LIMB 12/19/2015 NAVA LEVIN DO S Ot V12.51 HX-VENOUS THROMBOSIS EMBOLISM [...] MD Ot 782.3 EDEMA 12/19/2015 DARRON GUPTA [facility] Ot 599.70 HEMATURIA, UNSPECIFIED 12/19/2015 JENNIFER ALVAREZ POLICE DISPATCHER Ot I49.9 CARDIAC ARRHYTHMIA, UNSPECIFIED 12/19/2015 JENNIFER ALVAREZ POLICE DISPATCHER Ot M79.89 OTHER SPECIFIED SOFT TISSUE DISORDERS 12/19/2015 JENNIFER ALVAREZ POLICE DISPATCHER Ot Z86.718 PERSONAL HISTORY OF OTHER VENOUS THROMBO 12/19/2015 NAVA LEVIN DO Ot I82.492 ACUTE EMBOLISM AND THROMBOSIS OF DEEP VE 12/19/2015 JULIEN DAMON Ot E66.9 OBESITY, UNSPECIFIED 12/19/2015 HENDERSONKARTHIK BASILIO JUILEN Jessie Ot I10 ESSENTIAL (PRIMARY) HYPERTENSION 12/19/2015 LANCE BASILIO JULIEN Jessie Ot I48.0 PAROXYSMAL ATRIAL FIBRILLATION 12/19/2015 LANCE BASILIO JULIEN Roman Ot Z68.30 BODY MASS INDEX (BMI) 30.0-30.9, ADULT 12/19/2015 LANCE BASILIO JULIEN Jessie Ot E66.9 OBESITY, UNSPECIFIED 12/19/2015 LANCE BASILIO JULIEN Jessie Ot I10 ESSENTIAL (PRIMARY) HYPERTENSION 12/19/2015 LANCE BASILIO JULIEN Jessie Ot I48.0 PAROXYSMAL ATRIAL FIBRILLATION 12/19/2015 LANCE BASILIO JULIEN Jessie Ot Z68.30 BODY MASS INDEX (BMI) [...] ACUTE VENOUS EMBOLISM THROMBOSIS DEEP 01/14/2016 NAVA LEVIN DO S Ot 729.81 SWELLING OF LIMB 01/14/2016 NAVA LEVIN DO S Ot V12.51 HX-VENOUS THROMBOSIS EMBOLISM 01/14/2016 [...] MD Ot 782.3 EDEMA 01/14/2016 DARRON GUPTA [employer] CREW[employer]BER Ot 599.70 HEMATURIA, UNSPECIFIED 01/14/2016 KIM JENNIFER N POLICE DISPATCHER Ot I49.9 CARDIAC ARRHYTHMIA, UNSPECIFIED 01/14/2016 KIM JENNIFER N POLICE DISPATCHER Ot M79.89 OTHER SPECIFIED SOFT TISSUE DISORDERS 01/14/2016 MARY KAY ALVAREZKavya Leyva POLICE DISPATCHER Ot Z86.718 PERSONAL HISTORY OF OTHER VENOUS THROMBO 01/14/2016 NAVA LEVIN DO Ot I82.492 ACUTE EMBOLISM AND THROMBOSIS [...] ALCOHOL DEPENDENCE, IN REMISSION 01/15/2016 HALEY BAUMAN MD Ot I10 ESSENTIAL (PRIMARY) HYPERTENSION 01/15/2016 HALEY BAUMAN MD Ot I34.0 NONRHEUMATIC MITRAL (VALVE) INSUFFICIENC 01/15/2016 HALEY BAUMAN MD, Ot I48.91 UNSPECIFIED ATRIAL FIBRILLATION 01/15/2016 HALEY BAUMAN MD Ot I50.22 CHRONIC SYSTOLIC (CONGESTIVE) HEART FAIL 01/15/2016 HALEY BAUMAN MD Ot I82.91 CHRONIC EMBOLISM AND THROMBOSIS OF UNSPE 01/15/2016 HALEY BAUMAN MD Ot Z72.0 TOBACCO USE 01/15/2016 HALEY BAUMAN MD, Ot Z79.01 SQUIRREL MAN (CURRENT) USE OF ANTICOAGULANT 01/15/2016 HALEY BAUMAN MD Ot Z79.899 OTHER DETENTION (CURRENT) DRUG THERAPY 01/19/2016 HALEY BAUMAN MD, Ot I10 ESSENTIAL (PRIMARY) HYPERTENSION 01/19/2016 HALEY BAUMAN MD, Ot I48.0 PAROXYSMAL ATRIAL FIBRILLATION 02/20/2016 HALEY BAUMAN MD, Ot I10 ESSENTIAL (PRIMARY) HYPERTENSION 02/20/2016 HALEY BAUMAN MD, Ot I48.0 PAROXYSMAL ATRIAL FIBRILLATION 02/20/2016 JULIEN DAMON Ot E66.9 OBESITY, UNSPECIFIED 02/20/2016 JULIEN DAMON Ot I10 ESSENTIAL (PRIMARY) HYPERTENSION 02/20/2016 JULIEN DAMON Ot I48.0 PAROXYSMAL ATRIAL FIBRILLATION 02/20/2016 JULIEN DAMON Ot Z68.30 BODY MASS INDEX (BMI) 30.0-30.9, ADULT 02/20/2016 SEYMOUR LEVIN DOLINE S Ot I82.492 ACUTE EMBOLISM AND THROMBOSIS OF DEEP VE 02/20/2016 JENNIFER ALVAREZ POLICE DISPATCHER Ot I49.9 CARDIAC ARRHYTHMIA, UNSPECIFIED 02/20/2016 JENNIFER ALVAREZ POLICE DISPATCHER Ot M79.89 OTHER SPECIFIED SOFT TISSUE DISORDERS 02/20/2016 JENNIFER ALVAREZ POLICE DISPATCHER Ot Z86.718 PERSONAL HISTORY OF OTHER VENOUS THROMBO 02/20/2016 DARRON GUPTA [facility] Ot 599.70 HEMATURIA, UNSPECIFIED 02/20/2016 HALEY BAUMAN MD Ot 305.1 TOBACCO USE DISORDER 02/20/2016 HALEY BAUMAN MD Ot 401.9 HYPERTENSION NOS 02/20/2016 HALEY BAUMAN MD Ot 453.40 ACUTE VENOUS EMBOLISM THROMBOSIS UNSP 02/20/2016 HALEY BAUMAN MD Ot 782.3 EDEMA 02/20/2016 NAVA LEVIN DO S Ot 729.81 SWELLING OF LIMB 02/20/2016 SEYMOUR LEVIN DOLINE S Ot V12.51 HX-VENOUS THROMBOSIS EMBOLISM 03/31/2016 [...] DEFECT 03/31/2016 HALEY BAUMAN MD Ot Z79.01 DETENTION (CURRENT) USE OF ANTICOAGULANT 03/31/2016 HALEY BAUMAN MD Ot Z79.899 OTHER SQUIRREL MAN (CURRENT) DRUG THERAPY 03/31/2016 HALEY BAUMAN MD [...] DEFECT 05/04/2016 HALEY BAUMAN MD Ot Z79.01 DETENTION (CURRENT) USE OF ANTICOAGULANT 05/04/2016 HALEY BAUMAN MD Ot Z79.899 OTHER DETENTION (CURRENT) DRUG THERAPY 05/04/2016 HALEY BAUMAN MD [...] 453.41 ACUTE VENOUS EMBOLISM THROMBOSIS DEEP 05/04/2016 NAVA LEVIN DO S Ot 729.81 SWELLING OF LIMB 05/04/2016 NAVA LEVNI DO S Ot V12.51 HX-VENOUS THROMBOSIS EMBOLISM 05/04/2016 MERNA COX, HALEY Blake Ot 397.0 TRICUSPID VALVE DISEASE 05/04/2016 HALEY BAUMAN MD Ot 401.9 HYPERTENSION NOS 05/04/2016 MERNA COX, HALEY Blake Ot 416.8 CHR PULMON HEART DIS NEC 05/04/2016 HALEY BAUMAN MD Ot 424.0 MITRAL VALVE DISORDER 05/04/2016 HALEY BAUMAN MD Ot 782.3 EDEMA 05/04/2016 MERNA COX, HALEY J Ot 305.1 TOBACCO USE DISORDER 05/04/2016 HALEY BAUMAN MD Ot 401.9 HYPERTENSION NOS 05/04/2016 MERNA COX, HALEY Blake Ot 453.40 ACUTE VENOUS EMBOLISM THROMBOSIS UNSP 05/04/2016 HALEY BAUMAN MD Ot 782.3 EDEMA 05/04/2016 JOHNSTONJENIFER DARRON Browne [facility] Ot 599.70 HEMATURIA, UNSPECIFIED 05/04/2016 JENNIFER ALVAREZ POLICE DISPATCHER Ot I49.9 CARDIAC ARRHYTHMIA, UNSPECIFIED 05/04/2016 JENNIFER ALVAREZ POLICE DISPATCHER Ot M79.89 OTHER SPECIFIED SOFT TISSUE DISORDERS 05/04/2016 JENNIFER ALVAREZ POLICE DISPATCHER Ot Z86.718 PERSONAL HISTORY OF OTHER VENOUS THROMBO 05/04/2016 NAVA LEVIN DO Ot I82.492 ACUTE EMBOLISM AND THROMBOSIS OF DEEP VE 05/04/2016 JULIEN DAMON Ot E66.9 OBESITY, UNSPECIFIED 05/04/2016 JULIEN DAMON Ot I10 ESSENTIAL (PRIMARY) HYPERTENSION 05/04/2016 JULIEN DAMON Ot I48.0 PAROXYSMAL ATRIAL FIBRILLATION 05/04/2016 JULIEN DAMON Ot Z68.30 BODY MASS INDEX (BMI) 30.0-30.9, ADULT 05/04/2016 HALEY BAUMAN MD Ot I10 ESSENTIAL (PRIMARY) HYPERTENSION 05/04/2016 HALEY BAUMAN MD, Ot I48.0 PAROXYSMAL ATRIAL FIBRILLATION 05/06/2016 HALEY [...] UNSPECIFIED 05/06/2016 HALEY BAUMAN MD Ot Z79.01 SQUIRREL MAN (CURRENT) USE OF ANTICOAGULANT 05/06/2016 HALEY BAUMAN MD Ot Z86.718 PERSONAL HISTORY OF OTHER VENOUS THROMBO 05/06/2016 HALEY BAUMAN MD Ot Z87.891 PERSONAL HISTORY OF NICOTINE DEPENDENCE 05/13/2016 Pavan WESTON MD Ot F17.290 NICOTINE DEPENDENCE, OTHER TOBACCO PRODU 05/13/2016 Pavan WESTON MD Ot I42.9 CARDIOMYOPATHY, UNSPECIFIED 05/13/2016 Pavan WESTON MD Ot I48.1 PERSISTENT ATRIAL FIBRILLATION 05/13/2016 Pavan WESTON MD Ot Z79.01 DETENTION (CURRENT) USE OF ANTICOAGULANT 05/13/2016 Pavan WESTON MD Ot Z79.899 OTHER DETENTION (CURRENT) DRUG THERAPY 05/13/2016 Pavan WESTON MD Ot Z86.718 PERSONAL HISTORY OF OTHER VENOUS THROMBO 06/03/2016 Pavan WESTON MD Ot F17.290 NICOTINE DEPENDENCE, OTHER TOBACCO PRODU 06/03/2016 Pavan WESTON MD Ot I42.9 CARDIOMYOPATHY, UNSPECIFIED 06/03/2016 Pavan WESTON MD Ot I48.1 PERSISTENT ATRIAL FIBRILLATION 06/03/2016 Pavan WESTON MD Ot Z79.01 DETENTION (CURRENT) USE OF ANTICOAGULANT 06/03/2016 Pavan WESTON MD Ot Z79.899 OTHER DETENTION (CURRENT) DRUG THERAPY 06/03/2016 Pavan WESTON MD, Ot Z86.718 PERSONAL HISTORY OF OTHER VENOUS THROMBO 06/05/2016 Pavan WESTON MD Ot F17.290 NICOTINE DEPENDENCE, OTHER TOBACCO PRODU 06/05/2016 Pavan WESTON MD Ot I42.9 CARDIOMYOPATHY, UNSPECIFIED 06/05/2016 Pavan WSETON MD, Ot I48.1 PERSISTENT ATRIAL FIBRILLATION 06/05/2016 Pavan WESTON MD Ot Z79.01 DETENTION (CURRENT) USE OF ANTICOAGULANT 06/05/2016 Pavan WESTON MD, Ot Z79.899 OTHER SQUIRREL MAN (CURRENT) DRUG THERAPY 06/05/2016 Pavan WESTON MD, [...] ACUTE VENOUS EMBOLISM THROMBOSIS DEEP 06/25/2016 NAVA LEVIN DO S Ot 729.81 SWELLING OF LIMB 06/25/2016 NAVA LEVIN DO S Ot V12.51 HX-VENOUS THROMBOSIS EMBOLISM [...] HALEY BAUMAN MD Ot 782.3 EDEMA 06/25/2016 JOHNSTONJENIFERDARRON [facility] Ot 599.70 HEMATURIA, UNSPECIFIED 06/25/2016 JNENIFER ALVAREZ POLICE DISPATCHER Ot I49.9 CARDIAC ARRHYTHMIA, UNSPECIFIED 06/25/2016 JENNIFER ALVAREZ POLICE DISPATCHER Ot M79.89 OTHER SPECIFIED SOFT TISSUE DISORDERS 06/25/2016 JENNIFER ALVAREZ POLICE DISPATCHER Ot Z86.718 PERSONAL HISTORY OF OTHER VENOUS THROMBO 06/25/2016 NAVA LEVIN DO Ot I82.492 ACUTE EMBOLISM AND THROMBOSIS [...] 453.41 ACUTE VENOUS EMBOLISM THROMBOSIS DEEP 11/24/2016 POONAM DAVISON NAVA S Ot 729.81 SWELLING OF LIMB 11/24/2016 NAVA LEVIN DO Ot V12.51 HX-VENOUS THROMBOSIS EMBOLISM 11/24/2016 HALEY BAUMAN MD Ot 397.0 TRICUSPID VALVE DISEASE 11/24/2016 HALEY BAUMAN MD Ot 401.9 HYPERTENSION NOS 11/24/2016 MERNA COX, HALEY Blake Ot 416.8 CHR PULMON HEART DIS NEC 11/24/2016 HALEY BAUMAN MD Ot 424.0 MITRAL VALVE DISORDER 11/24/2016 HALEY BAUMAN MD Ot 782.3 EDEMA 11/24/2016 HALEY BAUMAN MD Ot 305.1 TOBACCO USE DISORDER 11/24/2016 HLAEY BAUMAN MD Ot 401.9 HYPERTENSION NOS 11/24/2016 MERNA COX, HALEY Blake Ot 453.40 ACUTE VENOUS EMBOLISM THROMBOSIS UNSP 11/24/2016 HALEY BAUMAN MD Ot 782.3 EDEMA 11/24/2016 DARRON GUPTA [facility] Ot 599.70 HEMATURIA, UNSPECIFIED 11/24/2016 JENNIFER ALVAREZ POLICE DISPATCHER Ot I49.9 CARDIAC ARRHYTHMIA, UNSPECIFIED 11/24/2016 JENNIFER ALVAREZ POLICE DISPATCHER Ot M79.89 OTHER SPECIFIED SOFT TISSUE DISORDERS 11/24/2016 JENNIFER ALVAREZ POLICE DISPATCHER Ot Z86.718 PERSONAL HISTORY OF OTHER VENOUS THROMBO 11/24/2016 NAVA LEVIN DO Ot I82.492 ACUTE EMBOLISM AND THROMBOSIS OF DEEP VE 11/24/2016 JULIEN DAMON Ot E66.9 OBESITY, UNSPECIFIED 11/24/2016 JULIEN DAMON Ot I10 ESSENTIAL (PRIMARY) HYPERTENSION 11/24/2016 JULIEN DAMON Ot I48.0 PAROXYSMAL ATRIAL FIBRILLATION 11/24/2016 JULIEN DAMON Ot Z68.30 BODY MASS INDEX (BMI) 30.0-30.9, ADULT 11/24/2016 MERNA COX, HALEY Blake Ot I10 ESSENTIAL (PRIMARY) HYPERTENSION 11/24/2016 HALEY BAUMAN MD Ot I48.0 PAROXYSMAL ATRIAL FIBRILLATION 11/30/2016 LANCE BASILIO JULIEN K Ot E78.2 MIXED HYPERLIPIDEMIA 11/30/2016 LANCE BASILIO JULIEN K Ot I10 ESSENTIAL (PRIMARY) HYPERTENSION 11/30/2016 LANCE BASILIO JULIEN K Ot I48.0 PAROXYSMAL ATRIAL FIBRILLATION 11/30/2016 LANCE BASIILO JULIEN Jessie Ot I50.1 LEFT VENTRICULAR FAILURE 11/30/2016 LANCE BASILIO JULIEN K Ot E78.2 MIXED HYPERLIPIDEMIA 11/30/2016 LANCE BASILIO JULIEN K Ot I11.0 HYPERTENSIVE HEART DISEASE WITH HEART FA 11/30/2016 LANCE BASILIO JULIEN Jessie Ot I48.0 PAROXYSMAL ATRIAL FIBRILLATION 11/30/2016 LANCE BASILIO JULIEN K Ot I50.1 LEFT VENTRICULAR FAILURE 12/13/2016 LANCE BASILIO JULIEN Jessie Ot E78.2 MIXED HYPERLIPIDEMIA 12/13/2016 LANCE BASILIO JULIEN K Ot I10 ESSENTIAL (PRIMARY) HYPERTENSION 12/13/2016 LANCE BASILIO JULIEN K Ot I48.0 PAROXYSMAL ATRIAL FIBRILLATION 12/13/2016 LANCE BASILIO JULIEN K Ot I50.1 LEFT VENTRICULAR FAILURE 01/12/2017 LANCE BASILIO JULIEN K Ot E78.2 MIXED HYPERLIPIDEMIA 01/12/2017 LANCE BASILIO JULIEN K Ot I11.0 HYPERTENSIVE [...] 453.41 ACUTE VENOUS EMBOLISM THROMBOSIS DEEP 01/15/2017 ISABELNAVA PERES DO Ot 729.81 SWELLING OF LIMB 01/15/2017 NAVA LEVIN DO Ot V12.51 HX-VENOUS THROMBOSIS EMBOLISM 01/15/2017 HALEY BAUMAN MD Ot 397.0 TRICUSPID VALVE DISEASE 01/15/2017 HALEY BAUMAN MD Ot 401.9 HYPERTENSION NOS 01/15/2017 HALEY BAUMAN MD Ot 416.8 CHR PULMON HEART DIS NEC 01/15/2017 HALEY BAUMAN MD Ot 424.0 MITRAL VALVE DISORDER 01/15/2017 HALEY BAUMAN MD Ot 782.3 EDEMA 01/15/2017 HALEY BAUMAN MD Ot 305.1 TOBACCO USE DISORDER 01/15/2017 HALEY BAUMAN MD Ot 401.9 HYPERTENSION NOS 01/15/2017 HALEY BAUMAN MD Ot 453.40 ACUTE VENOUS EMBOLISM THROMBOSIS UNSP 01/15/2017 HALEY BAUMAN MD Ot 782.3 EDEMA 01/15/2017 DARRON GUPTA [facility] Ot 599.70 HEMATURIA, UNSPECIFIED 01/15/2017 JENNIFER ALVAREZ POLICE DISPATCHER Ot I49.9 CARDIAC ARRHYTHMIA, UNSPECIFIED 01/15/2017 JENNIFER ALVAREZ POLICE DISPATCHER Ot M79.89 OTHER SPECIFIED SOFT TISSUE DISORDERS 01/15/2017 JENNIFER ALVAREZ POLICE DISPATCHER Ot Z86.718 PERSONAL HISTORY OF OTHER VENOUS THROMBO 01/15/2017 NAVA LEVIN DO Ot I82.492 ACUTE EMBOLISM AND THROMBOSIS OF DEEP VE 01/15/2017 JULIEN DAMON Ot E66.9 OBESITY, UNSPECIFIED 01/15/2017 JULIEN DAMON Ot I10 ESSENTIAL (PRIMARY) HYPERTENSION 01/15/2017 JULIEN DAMON Ot I48.0 PAROXYSMAL ATRIAL FIBRILLATION 01/15/2017 JULIEN DAMON Ot Z68.30 BODY MASS INDEX (BMI) 30.0-30.9, ADULT 01/15/2017 HALEY BAUMAN MD Ot I10 ESSENTIAL (PRIMARY) HYPERTENSION 01/15/2017 MERNA COX, HALEY Blake Ot I48.0 PAROXYSMAL ATRIAL FIBRILLATION 01/15/2017 LANCE BASILIO, JULIEN K Ot E78.2 MIXED HYPERLIPIDEMIA 01/15/2017 HENDERSONKARTHIK BASILIO, JULIEN K Ot I10 ESSENTIAL (PRIMARY) HYPERTENSION 01/15/2017 HENDERSON-RADHA BASILIO, JULIEN K Ot I48.0 PAROXYSMAL ATRIAL FIBRILLATION 01/15/2017 HENDERSON-RADHA BASILIO, JULIEN K Ot I50.1 LEFT VENTRICULAR FAILURE 01/15/2017 HENDERSON-RADHA BASILIO, JULIEN K Ot E78.2 MIXED HYPERLIPIDEMIA 01/15/2017 HENDERSON-RADHA BASILIO, JULIEN K Ot I11.0 HYPERTENSIVE HEART DISEASE WITH HEART FA 01/15/2017 HENDERSON-RADHA BASILIO, JULIEN K Ot I48.0 PAROXYSMAL ATRIAL FIBRILLATION 01/15/2017 HENDERSON-RADHA BASILIO, JULIEN K Ot I50.1 LEFT VENTRICULAR FAILURE 02/19/2017 HENDERSONKARTHIK BASILIO JULIEN K Ot E78.2 MIXED HYPERLIPIDEMIA 02/19/2017 HENDERSON-RADHA BASILIO, JULIEN K Ot I11.0 HYPERTENSIVE HEART DISEASE WITH HEART FA 02/19/2017 HENDERSON-RADHA BASILIO JULIEN K Ot I48.0 PAROXYSMAL ATRIAL FIBRILLATION 02/19/2017 HENDERSON-RADHA BASILIO JULIEN K Ot I50.1 LEFT VENTRICULAR FAILURE 02/24/2017 HENDERSON-RADHA BASILIO, JULIEN K Ot E78.2 MIXED HYPERLIPIDEMIA 02/24/2017 HENDERSON-RADHA BASILIO, JULIEN K Ot I11.0 HYPERTENSIVE HEART DISEASE WITH HEART FA 02/24/2017 HENDERSON-RADHA BASILIO, JULIEN K Ot I48.0 PAROXYSMAL ATRIAL FIBRILLATION 02/24/2017 HENDERSON-RADHA BASILIO, JULIEN K Ot I50.1 LEFT VENTRICULAR FAILURE 09/05/2017 NAVA LEVIN DO S Ot 729.81 SWELLING OF LIMB 09/05/2017 NAVA LEVIN DO S Ot V12.51 HX-VENOUS THROMBOSIS EMBOLISM 09/05/2017 HALEY BAUMAN MD Ot 397.0 TRICUSPID VALVE DISEASE 09/05/2017 HALEY BAUMAN MD Ot 401.9 HYPERTENSION NOS 09/05/2017 HALEY BAUMAN MD Ot 416.8 CHR PULMON HEART DIS NEC 09/05/2017 HALEY BAUMAN MD Ot 424.0 MITRAL VALVE DISORDER 09/05/2017 HALEY BAUMAN MD Ot 782.3 EDEMA 09/05/2017 HALEY BAUMAN MD Ot 305.1 TOBACCO USE DISORDER 09/05/2017 HALEY BAUMAN MD Ot 401.9 HYPERTENSION NOS 09/05/2017 HALEY BAUMAN MD Ot 453.40 ACUTE VENOUS EMBOLISM THROMBOSIS UNSP 09/05/2017 HALEY BAUMAN MD Ot 782.3 EDEMA 09/05/2017 PRESTONNarayanDARRON ROA [employer] CRE[employer]BER Ot 599.70 HEMATURIA, UNSPECIFIED 09/05/2017 JENNIFER ALVAREZ POLICE DISPATCHER Ot I49.9 CARDIAC ARRHYTHMIA, UNSPECIFIED 09/05/2017 JENNIFER ALVAREZ POLICE DISPATCHER Ot M79.89 OTHER SPECIFIED SOFT TISSUE DISORDERS 09/05/2017 JENNIFER ALVAREZ POLICE DISPATCHER Ot Z86.718 PERSONAL HISTORY OF OTHER VENOUS THROMBO 09/05/2017 NAVA LEVIN DO Ot I82.492 ACUTE EMBOLISM AND THROMBOSIS [...] Ot I48.0 PAROXYSMAL ATRIAL FIBRILLATION 09/05/2017 JULIEN DMAON Ot E78.2 MIXED HYPERLIPIDEMIA 09/05/2017 JULIEN DAMON [...] Pavan WESTON MD Ot E78.2 MIXED HYPERLIPIDEMIA 09/20/2017 Pavan WESTON MD Ot E78.2 MIXED HYPERLIPIDEMIA 09/20/2017 Pavan WESTON MD Ot I11.0 HYPERTENSIVE HEART DISEASE WITH HEART FA 09/20/2017 Pavan WESTON MD Ot I48.0 PAROXYSMAL ATRIAL FIBRILLATION 09/20/2017 Pavan WESTON MD Ot I50.9 HEART FAILURE, UNSPECIFIED 09/20/2017 Pavan WESTON MD Ot M79.605 PAIN IN LEFT LEG 09/20/2017 Pavan WESTON MD Ot R00.1 BRADYCARDIA, UNSPECIFIED 09/20/2017 Pavan WESTON MD Ot Z79.01 SQUIRREL MAN (CURRENT) USE OF ANTICOAGULANT 09/20/2017 Pavan WESTON MD Ot Z79.899 OTHER SQUIRREL MAN (CURRENT) DRUG THERAPY 09/20/2017 Pavan WESTON MD Ot Z86.718 PERSONAL HISTORY OF OTHER VENOUS THROMBO 09/20/2017 Pavan WESTON MD Ot Z87.891 PERSONAL HISTORY OF NICOTINE DEPENDENCE 09/21/2017 Pavan WESTON MD Ot E78.2 MIXED HYPERLIPIDEMIA 10/05/2017 Pavan WESTON MD Ot E78.2 MIXED HYPERLIPIDEMIA 10/05/2017 Pavan WESTON MD Ot I11.0 HYPERTENSIVE HEART DISEASE WITH HEART FA 10/05/2017 Pavan WESTON MD Ot I48.0 PAROXYSMAL ATRIAL FIBRILLATION 10/05/2017 Pavan WESTON MD Ot I50.9 HEART FAILURE, UNSPECIFIED 10/05/2017 Pavan WESTON MD Ot M79.605 PAIN IN LEFT LEG 10/05/2017 Pavan WESTON MD Ot R00.1 BRADYCARDIA, UNSPECIFIED 10/05/2017 Pavan WESTON MD Ot Z79.01 SQUIRREL MAN (CURRENT) USE OF ANTICOAGULANT 10/05/2017 Pavan WESTON MD Ot Z79.899 OTHER SQUIRREL MAN (CURRENT) DRUG THERAPY 10/05/2017 Pavan WESTON MD Ot Z86.718 PERSONAL HISTORY OF OTHER VENOUS THROMBO 10/05/2017 aPvan WESTON MD Ot Z87.891 PERSONAL HISTORY OF NICOTINE DEPENDENCE 11/09/2017 Pavan WESTON MD Ot E78.2 MIXED HYPERLIPIDEMIA 11/09/2017 Pavan WESTON MD Ot I11.0 HYPERTENSIVE HEART DISEASE WITH HEART FA 11/09/2017 Pavan WESTON MD, Ot I48.0 PAROXYSMAL ATRIAL FIBRILLATION 11/09/2017 Pavan WESTON MD Ot I50.9 HEART FAILURE, UNSPECIFIED 11/09/2017 Pavan WESTON MD Ot M79.605 PAIN IN LEFT LEG 11/09/2017 Pavan WESTON MD Ot R00.1 BRADYCARDIA, UNSPECIFIED 11/09/2017 Pavan WESTON MD Ot Z79.01 DETENTION (CURRENT) USE OF ANTICOAGULANT 11/09/2017 Pavan WESTON MD Ot Z79.899 OTHER DETENTION (CURRENT) DRUG THERAPY 11/09/2017 Pavan WESTON MD Ot Z86.718 PERSONAL HISTORY OF OTHER VENOUS THROMBO 11/09/2017 Pavan WESTON MD Ot Z87.891 PERSONAL HISTORY OF NICOTINE DEPENDENCE 12/09/2017 NAVA LEVIN DO S Ot 729.81 SWELLING OF LIMB 12/09/2017 NAVA LEVIN DO S Ot V12.51 HX-VENOUS THROMBOSIS EMBOLISM 12/09/2017 HALEY BAUMAN MD Ot 397.0 TRICUSPID VALVE DISEASE 12/09/2017 HALEY BAUMAN MD Ot 401.9 HYPERTENSION NOS 12/09/2017 HALEY BAUMAN MD Ot 416.8 CHR PULMON HEART DIS NEC 12/09/2017 HALEY BAUMAN MD Ot 424.0 MITRAL VALVE DISORDER 12/09/2017 HALEY BAUMAN MD Ot 782.3 EDEMA 12/09/2017 HALEY BAUMAN MD Ot 305.1 TOBACCO USE DISORDER 12/09/2017 HALEY BAUMAN MD Ot 401.9 HYPERTENSION NOS 12/09/2017 HALEY BAUMAN MD Ot 453.40 ACUTE VENOUS EMBOLISM THROMBOSIS UNSP 12/09/2017 HALEY BAUMAN MD Ot 782.3 EDEMA 12/09/2017 ALONSO DARRON Pavan [employer]BER Ot 599.70 HEMATURIA, UNSPECIFIED 12/09/2017 JENNIFER ALVAREZ POLICE DISPATCHER Ot I49.9 CARDIAC ARRHYTHMIA, UNSPECIFIED 12/09/2017 JENNIFER ALVAREZ POLICE DISPATCHER Ot M79.89 OTHER SPECIFIED SOFT TISSUE DISORDERS 12/09/2017 JENNIFER ALVAREZ POLICE DISPATCHER Ot Z86.718 PERSONAL HISTORY OF OTHER VENOUS THROMBO 12/09/2017 NAVA LEVIN DO Ot I82.492 ACUTE EMBOLISM AND THROMBOSIS OF DEEP VE 12/09/2017 JULIEN DAMON Ot E66.9 OBESITY, UNSPECIFIED 12/09/2017 JULIEN DAMON Ot I10 ESSENTIAL (PRIMARY) HYPERTENSION 12/09/2017 JULIEN DAMON Ot I48.0 PAROXYSMAL ATRIAL FIBRILLATION 12/09/2017 JULIEN DAMON Ot Z68.30 BODY MASS INDEX (BMI) 30.0-30.9, ADULT 12/09/2017 HALEY BAUMAN MD Ot I10 ESSENTIAL (PRIMARY) HYPERTENSION 12/09/2017 HALEY BAUMAN MD Ot I48.0 PAROXYSMAL ATRIAL FIBRILLATION 12/09/2017 JULIEN DAMON Ot E78.2 MIXED HYPERLIPIDEMIA 12/09/2017 JULIEN DAMON Ot I10 ESSENTIAL (PRIMARY) HYPERTENSION 12/09/2017 JULIEN DAMON Ot I48.0 PAROXYSMAL ATRIAL FIBRILLATION 12/09/2017 JULIEN DAMON Ot I50.1 LEFT VENTRICULAR FAILURE 12/09/2017 JULIEN DAMON Ot E78.2 MIXED HYPERLIPIDEMIA 12/09/2017 JULIEN DAMON Ot I11.0 HYPERTENSIVE HEART DISEASE WITH HEART FA 12/09/2017 JULIEN DAMON Ot I48.0 PAROXYSMAL ATRIAL FIBRILLATION 12/09/2017 JULIEN DAMON Ot I50.1 LEFT VENTRICULAR FAILURE, UNSPECIFIED 12/09/2017 Pavan WESTON MD Ot E78.2 MIXED HYPERLIPIDEMIA 12/09/2017 Pavan WESTON MD Ot E78.2 MIXED HYPERLIPIDEMIA 12/09/2017 ENRICO COX, Pavan SILVEIRA Ot I11.0 HYPERTENSIVE HEART DISEASE WITH HEART FA 12/09/2017 Pavan WESTON MD Ot I48.0 PAROXYSMAL ATRIAL FIBRILLATION 12/09/2017 Pavan WESTON MD Ot I50.9 HEART FAILURE, UNSPECIFIED 12/09/2017 Pavan WESTON MD Ot M79.605 PAIN IN LEFT LEG 12/09/2017 Pavan WESTON MD Ot R00.1 BRADYCARDIA, UNSPECIFIED 12/09/2017 Pavan WESTON MD Ot Z79.01 SQUIRREL MAN (CURRENT) USE OF ANTICOAGULANT 12/09/2017 Pavan WESTON MD Ot Z79.899 OTHER SQUIRREL MAN (CURRENT) DRUG THERAPY 12/09/2017 Pavan WESTON MD Ot Z86.718 PERSONAL HISTORY OF OTHER VENOUS THROMBO 12/09/2017 Pavan WESTON MD Ot Z87.891 PERSONAL HISTORY OF NICOTINE DEPENDENCE 12/09/2017 Pavan WESTON MD Ot E78.2 MIXED HYPERLIPIDEMIA 12/13/2017 JULIEN DAMON Ot E78.2 MIXED HYPERLIPIDEMIA 12/13/2017 JULIEN DAMON Ot I10 ESSENTIAL (PRIMARY) HYPERTENSION 02/15/2018 Pavan WESTON MD Ot E78.2 MIXED HYPERLIPIDEMIA 02/15/2018 Pavan WESTON MD Ot I11.0 HYPERTENSIVE HEART DISEASE WITH HEART FA 02/15/2018 Pavan WESTON MD Ot I48.0 PAROXYSMAL ATRIAL FIBRILLATION 02/15/2018 Pavan WESTON MD Ot I50.9 HEART FAILURE, UNSPECIFIED 02/15/2018 Pavan WESTON MD Ot M79.605 PAIN IN LEFT LEG 02/15/2018 Pavan WESTON MD Ot R00.1 BRADYCARDIA, UNSPECIFIED 02/15/2018 Pavan WESTON MD Ot Z79.01 SQUIRREL MAN (CURRENT) USE OF ANTICOAGULANT 02/15/2018 Pavan WESTON MD, Ot Z79.899 OTHER SQUIRREL MAN (CURRENT) DRUG THERAPY 02/15/2018 Pavan WESTON MD, Ot Z86.718 PERSONAL HISTORY OF OTHER VENOUS THROMBO 02/15/2018 Pavan WESTON MD, Ot Z87.891 PERSONAL HISTORY OF NICOTINE DEPENDENCE 04/27/2018 HALEY BAUMAN MD Ot 397.0 TRICUSPID VALVE DISEASE 04/27/2018 HALEY BAUMAN MD Ot 401.9 HYPERTENSION NOS 04/27/2018 HALEY BAUMAN MD Ot 416.8 CHR PULMON HEART DIS NEC 04/27/2018 HALEY BAUMAN MD Ot 424.0 MITRAL VALVE DISORDER 04/27/2018 HALEY BAUMAN MD Ot 782.3 EDEMA 04/27/2018 HALEY BAUMAN MD Ot 305.1 TOBACCO USE DISORDER 04/27/2018 HALEY BAUMAN MD Ot 401.9 HYPERTENSION NOS 04/27/2018 HALEY BAUMAN MD Ot 453.40 ACUTE VENOUS EMBOLISM THROMBOSIS UNSP 04/27/2018 HALEY BAUMAN MD Ot 782.3 EDEMA 04/27/2018 DARRON GUPTA [facility] Ot 599.70 HEMATURIA, UNSPECIFIED 04/27/2018 JENNIFER ALVAREZ APRN Ot I49.9 CARDIAC ARRHYTHMIA, UNSPECIFIED 04/27/2018 JENNIFER ALVAREZ APRN Ot M79.89 OTHER SPECIFIED SOFT TISSUE DISORDERS 04/27/2018 JENNIFER ALVAREZ APRN Ot Z86.718 PERSONAL HISTORY OF OTHER VENOUS THROMBO 04/27/2018 NAVA LEVIN DO Ot I82.492 ACUTE EMBOLISM AND THROMBOSIS OF DEEP VE 04/27/2018 JULIEN DAMON Ot E66.9 OBESITY, UNSPECIFIED 04/27/2018 JULIEN DAMON Ot I10 ESSENTIAL (PRIMARY) HYPERTENSION 04/27/2018 ANDREASRADHA BASILIO, JULIEN K Ot I48.0 PAROXYSMAL ATRIAL FIBRILLATION 04/27/2018 HENDERSONRADHA BASILIO, JULIEN K Ot Z68.30 BODY MASS INDEX (BMI) 30.0-30.9, ADULT 04/27/2018 HALEY BAUMAN MD Ot I10 ESSENTIAL (PRIMARY) HYPERTENSION 04/27/2018 MERNA COX, HALEY Blake Ot I48.0 PAROXYSMAL ATRIAL FIBRILLATION 04/27/2018 HENDERSONRADHA BASILIO, JULIEN K Ot E78.2 MIXED HYPERLIPIDEMIA 04/27/2018 [facility], JULIEN K Ot I10 ESSENTIAL (PRIMARY) HYPERTENSION 04/27/2018 [facility], JULIEN K Ot I48.0 PAROXYSMAL ATRIAL FIBRILLATION 04/27/2018 HENDERSONRADHA BASILIO JULIEN K Ot I50.1 LEFT VENTRICULAR FAILURE 04/27/2018 HENDERSON-RADHA BASILIO, JULIEN K Ot E78.2 MIXED HYPERLIPIDEMIA 04/27/2018 HENDERSONRADHA BASILIO, JULIEN K Ot I11.0 HYPERTENSIVE HEART DISEASE WITH HEART FA 04/27/2018 HENDERSON-RADHA BASILIO, JULIEN K Ot I48.0 PAROXYSMAL ATRIAL FIBRILLATION 04/27/2018 HENDERSON-RADHA BASILIO, JULIEN K Ot I50.1 LEFT VENTRICULAR FAILURE, UNSPECIFIED 04/27/2018 ENRICO COX, Pavan SILVEIRA Ot E78.2 MIXED HYPERLIPIDEMIA 04/27/2018 Pavan WESTON MD Ot E78.2 MIXED HYPERLIPIDEMIA 04/27/2018 ENRICO COX, Pavan SILVEIRA Ot I11.0 HYPERTENSIVE HEART DISEASE WITH HEART FA 04/27/2018 Pavan WESTON MD Ot I48.0 PAROXYSMAL ATRIAL FIBRILLATION 04/27/2018 Pavan WESTON MD Ot I50.9 HEART FAILURE, UNSPECIFIED 04/27/2018 Pavan WESTON MD Ot M79.605 PAIN IN LEFT LEG 04/27/2018 Pavan WESTON MD Ot R00.1 BRADYCARDIA, UNSPECIFIED 04/27/2018 Pavan WESTON MD Ot Z79.01 DETENTION (CURRENT) USE OF ANTICOAGULANT 04/27/2018 Pavan WESTON MD, Ot Z79.899 OTHER SQUIRREL MAN (CURRENT) DRUG THERAPY 04/27/2018 ENRICO COX, Pavan SILVEIRA Ot Z86.718 PERSONAL HISTORY OF OTHER VENOUS THROMBO 04/27/2018 ENRICO COX, Pavan SILVEIRA Ot Z87.891 PERSONAL HISTORY OF NICOTINE DEPENDENCE 04/27/2018 JULIEN DAMON Ot E78.2 MIXED HYPERLIPIDEMIA 04/27/2018 JULIEN DAMON Ot I10 ESSENTIAL (PRIMARY) HYPERTENSION 06/08/2018 HALEY BAUMAN MD Ot I08.1 RHEUMATIC DISORDERS OF BOTH MITRAL AND T 06/08/2018 HALEY BAUMAN MD Ot I11.0 HYPERTENSIVE HEART DISEASE WITH HEART FA 06/08/2018 HALEY BAUMAN MD Ot I48.0 PAROXYSMAL ATRIAL FIBRILLATION 06/08/2018 HALEY BAUMAN MD J Ot I50.9 HEART FAILURE, UNSPECIFIED 06/08/2018 HALEY BAUMAN MD J Ot R00.1 BRADYCARDIA, UNSPECIFIED 06/21/2018 HALEY BAUMAN MD J Ot I08.1 RHEUMATIC DISORDERS OF BOTH MITRAL AND T 06/21/2018 HALEY BAUMAN MD J Ot I11.0 HYPERTENSIVE HEART DISEASE WITH HEART FA 06/21/2018 HALEY BAUMAN MD J Ot I48.0 PAROXYSMAL ATRIAL FIBRILLATION 06/21/2018 HALEY BAUMAN MD J Ot I50.9 HEART FAILURE, UNSPECIFIED 06/21/2018 HALEY BAUMAN MD J Ot R00.1 BRADYCARDIA, UNSPECIFIED 07/25/2018 HALEY BAUMAN MD J Ot I08.1 RHEUMATIC DISORDERS OF BOTH MITRAL AND T 07/25/2018 HALEY BAUMAN MD Ot I11.0 HYPERTENSIVE HEART DISEASE WITH HEART FA 07/25/2018 HALEY BAUMAN MD Ot I48.0 PAROXYSMAL ATRIAL FIBRILLATION 07/25/2018 HALEY BAUMAN MD Ot I50.9 HEART FAILURE, UNSPECIFIED 07/25/2018 HALEY BAUMAN MD Ot R00.1 BRADYCARDIA, UNSPECIFIED 09/21/2018 JULIEN DAMON Ot E78.2 MIXED HYPERLIPIDEMIA 09/21/2018 JULIEN DAMON Ot I10 ESSENTIAL (PRIMARY) HYPERTENSION Procedures There is no data. Results Test [...] Automated erythrocyte mean corpuscular hemoglobin concentration measurement (mass/volume) 35 g/dL 32-36 Automated erythrocyte distribution width ratio 12.4 % 10.0- 14.5 Automated blood platelet count (count/volume) 196 10*3/uL 130-400 Automated blood platelet mean volume measurement 10.4 [foz_us] 7.4-10.4 Complete urinalysis with reflex to culture - 01/14/16 08:08 Urine color determination YELLOW NRG Urine clarity determination CLEAR NRG Urine pH measurement by test strip 7 5-9 Specific gravity of urine by test strip 1.010 1.016-1.022 Urine protein assay by test strip, semi-quantitative [...] sediment leukocyte count by microscopy (number/high power field) [HPF] NRG Bacteria detection in urine sediment [...] Serum or plasma aspartate aminotransferase measurement (enzymatic activity/volume) 25 U/L 5-34 Serum or plasma alanine aminotransferase measurement (enzymatic activity/volume) 24 U/L 0-55 Serum or plasma protein measurement (mass/volume) 6.9 g/dL 6.4-8.2 Serum or plasma albumin measurement (mass/volume) 4.1 g/dL 3.2-4.5 Lipid 1996 panel - 01/14/16 08:08 Serum or plasma triglyceride measurement (mass/volume) 78 mg/dL <150 Serum or plasma cholesterol measurement (mass/volume) 200 mg/dL < 200 Serum or plasma cholesterol in HDL measurement (mass/volume) 51 mg/dL 40-60 Cholesterol in LDL [mass/volume] in serum or plasma by direct assay 135 mg/dL 1-129 Serum or plasma cholesterol in VLDL measurement (mass/volume) 16 mg/dL 5-40 PT panel in platelet poor plasma [...] Automated erythrocyte mean corpuscular hemoglobin concentration measurement (mass/volume) 34 g/dL 32-36 Automated erythrocyte distribution width ratio 12.4 % 10.0- 14.5 Automated blood platelet count (count/volume) 229 10*3/uL [...] Serum or plasma aspartate aminotransferase measurement (enzymatic activity/volume) 29 U/L 5-34 Serum or plasma alanine aminotransferase measurement (enzymatic activity/volume) 35 U/L 0-55 Serum or plasma protein measurement (mass/volume) 7.8 g/dL 6.4-8.2 Serum or plasma albumin measurement (mass/volume) 4.5 g/dL 3.2-4.5 Methicillin resistant Staphylococcus aureus (MRSA) screening culture - 03/31/16 08:45 Methicillin resistant Staphylococcus aureus (MRSA) screening culture NEG [facility] Automated blood complete blood count (hemogram) panel [...] Automated erythrocyte mean corpuscular hemoglobin concentration measurement (mass/volume) 34 g/dL 32-36 Automated erythrocyte distribution width ratio 12.3 % 10.0- 14.5 Automated blood platelet count (count/volume) 216 10*3/uL [...] Serum or plasma aspartate aminotransferase measurement (enzymatic activity/volume) 24 U/L 5-34 Serum or plasma alanine aminotransferase measurement (enzymatic activity/volume) 21 U/L 0-55 Serum or plasma protein [...] Automated erythrocyte mean corpuscular hemoglobin concentration measurement (mass/volume) 34 g/dL 32-36 Automated erythrocyte distribution width ratio 12.4 % 10.0- 14.5 Automated blood platelet count (count/volume) 255 10*3/uL [...] Blood monocytes automated count (number/volume) 0.6 10*3 0.0- 1.0 Automated eosinophil count 0.2 10*3/uL 0.0-0.3 Automated [...] Automated erythrocyte mean corpuscular hemoglobin concentration measurement (mass/volume) 34 g/dL 32-36 Automated erythrocyte distribution width ratio 12.3 % 10.0- 14.5 Automated blood platelet count (count/volume) 234 10*3/uL [...] Blood monocytes automated count (number/volume) 0.8 10*3 0.0- 1.0 Automated eosinophil count 0.2 10*3/uL 0.0-0.3 Automated [...] Automated erythrocyte mean corpuscular hemoglobin concentration measurement (mass/volume) 34 g/dL 32-36 Automated erythrocyte distribution width ratio 12.4 % 10.0- 14.5 Automated blood platelet count (count/volume) 214 10*3/uL [...] Serum or plasma aspartate aminotransferase measurement (enzymatic activity/volume) 26 U/L 5-34 Serum or plasma alanine aminotransferase measurement (enzymatic activity/volume) 25 U/L 0-55 Serum or plasma protein measurement (mass/volume) 6.6 g/dL 6.4-8.2 Serum or plasma albumin measurement (mass/volume) 3.9 g/dL 3.2-4.5 Methicillin resistant Staphylococcus aureus (MRSA) screening culture - 05/13/16 08:33 Methicillin resistant Staphylococcus aureus (MRSA) screening culture NEG NR Comprehensive metabolic panel - 09/05/17 07:45 Serum or plasma sodium measurement (moles/volume) 141 mmol/L 135-145 Serum or plasma potassium measurement (moles/volume) 4.4 mmol/L 3.6-5.0 Serum or plasma chloride measurement (moles/volume) 107 mmol/L 98-107 Carbon dioxide 22 mmol/L -32 Serum or plasma anion gap determination (moles/volume) [...] Serum or plasma aspartate aminotransferase measurement (enzymatic activity/volume) 38 U/L 5-34 Serum or plasma alanine aminotransferase measurement (enzymatic activity/volume) 25 U/L 0-55 Serum or plasma protein measurement (mass/volume) 7.6 g/dL 6.4-8.2 Serum or plasma albumin measurement (mass/volume) 4.2 g/dL 3.2-4.5 Lipid 1996 panel - 09/05/17 07:45 Serum or plasma triglyceride measurement (mass/volume) 120 mg/dL <150 Serum or plasma cholesterol measurement (mass/volume) 168 mg/dL < 200 Serum or plasma cholesterol in HDL measurement (mass/volume) 47 mg/dL 40-60 Cholesterol in LDL [mass/volume] in serum or plasma by direct assay 102 mg/dL 1-129 Serum or plasma cholesterol in VLDL measurement (mass/volume) 24 mg/dL 5-40 Encounters ACCT No. Visit Date/Time Discharge Status Pt. Type Provider Facility Loc./Unit Complaint [id number] 09/08/2018 07:58:00 09/08/2018 23:59:59 CLS Outpatient JULIEN DAMON [facility] LAB I10,E78.2 [id number] 06/05/2018 12:49:00 06/05/2018 23:59:59 CLS Outpatient HALEY BAUMAN MD [facility] CARD HTN [id number] 12/12/2017 07:14:00 12/12/2017 23:59:59 CLS Outpatient JULIEN DAMON [facility] LAB I10 E78.2 [id number] 09/16/2017 07:23:00 09/16/2017 23:59:59 CLS Outpatient Pavan WESTON MD [facility] CATH AFIB [id number] 09/05/2017 07:32:00 09/05/2017 23:59:59 CLS Outpatient Pavan WESTON MD [facility] LAB E78.2 [id number] 02/20/2017 14:15:00 02/20/2017 23:59:59 CLS Preadmit JULIEN DAMON [facility] CARD AFIB,CHRONIC CHF [id number] 11/29/2016 13:03:00 02/19/2017 00:01:00 DIS Outpatient JULIEN DAMON [facility] CARD AFIB,CHRONIC CHF [id number] 11/29/2016 12:58:00 11/29/2016 23:59:59 CLS Outpatient JULIEN DAMON [facility] CARD AFIB,CHRONIC CHF [id number] 05/13/2016 08:03:00 05/13/2016 11:26:00 DIS Outpatient Pavan WESTON MD [facility] CATH AFIB [id number] 05/04/2016 08:30:00 05/06/2016 12:00:00 DIS Inpatient HALEY BAUMAN MD [facility] ICU AFIB [id number] 03/31/2016 08:16:00 03/31/2016 15:40:00 DIS Outpatient HALEY BAUMAN MD [facility] CATH PAF,HTN [id number] 01/14/2016 07:40:00 01/15/2016 10:40:00 DIS Outpatient HALEY BAUMAN MD [facility] CATH AF,CARDIOMYOPATHY [id number] 12/19/2015 14:39:00 12/19/2015 23:59:59 CLS Outpatient HALEY BAUMAN MD [facility] CARD A-FIB; DVT; HTN; OBESITY [id number] 11/26/2015 08:26:00 11/26/2015 23:59:59 CLS Outpatient JULIEN DAMON [facility] CARD AFIB,DVT,HTN,OBESITY [id number] 11/19/2015 11:09:00 11/19/2015 23:59:59 CLS Outpatient NAVA LEVIN DO S [facility] RAD DVT, EDEMA, LEG PAIN,ATRIAL FIBRILLATION [id number] 11/10/2015 16:47:00 11/10/2015 23:59:59 CLS Outpatient JENNIFER ALVAREZ APRN [facility] CARD LEG SWELLING, CARDIAC ARYTHMIA, HISTORY OF DVT [id number] 06/24/2014 15:30:00 06/24/2014 23:59:59 CLS Outpatient JOHNSTONLOUIS DARRON Pavan SUNG [facility] RAD HEMATURIA [id number] 10/03/2013 12:40:00 10/03/2013 23:59:59 CLS Outpatient HALEY BAUMAN MD [facility] CARD DVT,ADEMA LLE,HTN [id number] 09/25/2013 08:41:00 09/25/2013 23:59:59 CLS Outpatient HALEY BAUMAN MD [facility] LAB DVT,EDEMA OF LOWER LEG,HTN [id number] 10/10/2012 15:11:00 10/10/2012 23:59:59 CLS Outpatient NAVA LEVIN DO [facility] RAD LEFT CALF SWELLING, HX OF DVT [id number] 10/09/2018 08:00:00 Pavan Connolly MD [facility] CATH SYMPTOMATIC PAF REFRACTORY TO ANTI ARRYTHMIA THERA [id number] 12/01/2014 17:33:00 Document Registration [id number] 12/01/2014 17:33:00 Document Registration [id number] 12/01/2014 17:33:00 Document Registration [id number] 12/01/2014 17:32:00 Document Registration [id number] 02/18/2012 13:00:00 Document Registration [id number] 01/07/2012 13:35:00 Document Registration [id number] 11/23/2011 14:07:00 Document Registration [id number] 10/25/2011 17:55:00 Document Registration [id number] 08/10/2011 15:19:00 Document Registration [id number] 02/09/2010 08:44:00 Document Registration [id number] 06/29/2014 12:38:20 ACT Document Registration 05/201612/06/2016 16:02:10 12/06/2016 23:59:59 Nava Dorado
[2018-10-09 07:16] VITALS: BP 166/109
[2018-10-09 07:29] LABS: HEMOGLOBIN 14.5 G/DL (13.3-17.7); MEAN PLATELET VOLUME 10.8 FL (7.4-10.4); RED CELL DISTRIBUTION WIDTH 12.9 % (10.0-14.5)
[2018-10-09 07:42] LABS: INR 1.2 (0.8-1.4); PROTHROMBIN TIME PATIENT 16.1 SEC (12.2-14.7)
[2018-10-09 07:49] LABS: ALANINE AMINOTRANSFERASE 19 U/L (0-55); ALKALINE PHOSPHATASE 63 U/L (40-136); BILIRUBIN,TOTAL 0.3 MG/DL (0.1-1.0); BUN/CREATININE RATIO 16; CALCIUM 9.5 MG/DL (8.5-10.1); CARBON DIOXIDE 26 MMOL/L (21-32); CHLORIDE 106 MMOL/L (98-107); CREATININE SERUM 0.86 MG/DL (0.60-1.30); GFR ESTIMATED > 60; GLUCOSE 105 MG/DL (70-105); POTASSIUM 3.7 MMOL/L (3.6-5.0); SODIUM 143 MMOL/L (135-145); TOTAL PROTEIN 7.1 GM/DL (6.4-8.2)
== END ==
LOC: CATH 06:57
PROVIDERS: ATTEND Internal Medicine Interventional Cardiology
DX: I48.0 Paroxysmal atrial fibrillation (principal); I11.0 Hypertensive heart disease with heart failure; I50.9 Heart failure, unspecified; E78.2 Mixed hyperlipidemia; R00.1 Bradycardia, unspecified; N52.9 Male erectile dysfunction, unspecified; M19.91 Primary osteoarthritis, unspecified site; Z79.899 Other long term (current) drug therapy; Z79.01 Long term (current) use of anticoagulants; Z86.718 Personal history of other venous thrombosis and embolism; Z87.891 Personal history of nicotine dependence; Z88.0 Allergy status to penicillin; Z53.9 Procedure and treatment not carried out, unspecified reason
CPT/HCPCS: 36415; 80053; 85027; 85610; 85730; 87081

== ENCOUNTER → 2019-02-28 | Outpatient (CLI) | payer BC ==
[~2019-02-28] MED LIST changes: -HEParin (CATH LAB) 0 ML IV ONE; -LIDOCAINE 1% INJ 20 ML 20 ML VIAL ONE; -NS IV 1000 ML 1,000 ML IV SCH; -NS IV 1000 ML 1,000 ML ONE
[2019-02-28 07:50] LABS: ALANINE AMINOTRANSFERASE 33 U/L (0-55); ALBUMIN 4.1 GM/DL (3.2-4.5); ALKALINE PHOSPHATASE 72 U/L (40-136); BILIRUBIN,TOTAL 0.3 MG/DL (0.1-1.0); BUN/CREATININE RATIO 17; CALCIUM 8.9 MG/DL (8.5-10.1); CARBON DIOXIDE 25 MMOL/L (21-32); CHLORIDE 108 MMOL/L (98-107); GFR ESTIMATED > 60; GLUCOSE 96 MG/DL (70-105); POTASSIUM 4.2 MMOL/L (3.6-5.0); SODIUM 140 MMOL/L (135-145)
== END ==
LOC: LAB 07:04
PROVIDERS: ATTEND Internal Medicine Interventional Cardiology
DX: I48.0 Paroxysmal atrial fibrillation (principal)
CPT/HCPCS: 36415; 80053

== ENCOUNTER → 2019-05-01 | Outpatient (CLI) | payer BC ==
[2019-05-01 08:25] LABS: CHOLESTEROL 176 MG/DL (< 200); HDL CHOLESTEROL 54 MG/DL (40-60); TRIGLYCERIDES 71 MG/DL (<150); VLDL CHOLESTEROL 14 MG/DL (5-40)
== END ==
LOC: LAB 07:45
PROVIDERS: ATTEND Internal Medicine Cardiovascular Disease
DX: I48.91 Unspecified atrial fibrillation (principal); E78.2 Mixed hyperlipidemia; I10 Essential (primary) hypertension
CPT/HCPCS: 36415; 80061

== ENCOUNTER 2019-07-09 06:51 | Outpatient (CLI) | payer BC ==
[2019-07-09] VITALS (20 sets, daily range): BP systolic 111–158; BP diastolic 71–102
[~2019-07-09] VITALS: Ht 177 cm; Wt 86.0 kg
[~2019-07-09 06:51] MED LIST changes: -METO-370 PO; +METO50TA7 PO
[2019-07-09] MEDS ORDERED: NS IV 1000 ML 1,000 ML ONE (06:53)
[2019-07-09] MEDS ORDERED: HEParin (CATH LAB) 4,000 ML IV ONE (06:53)
[2019-07-09] MEDS ORDERED: LIDOCAINE 1% INJ 20 ML 20 ML VIAL ONE (06:53)
[2019-07-09] MEDS ORDERED: HEParin 1000 UNIT/ML (10ML VIAL) FOR BOLUS ONE (06:53)
[2019-07-09] MEDS ORDERED: ISOPROTERENOL 0.2 MG/D5W 50 ML IV ONE (07:00)
[2019-07-09] MEDS ORDERED: proPOfol 200 MG/20 ML (DIPRIVAN) VIAL IV ONE (07:17)
[2019-07-09] MEDS ORDERED: fentaNYL INJECTION 100 MCG/2 ML AMP ONE (07:17)
[2019-07-09] MEDS: NS IV 1000 ML 1,000 ML IV SCH ×2 (07:17→17:41)
[2019-07-09] MEDS ORDERED: ROCURONIUM 10 MG/ML 5 ML SYRINGE IV ONE ×3 (07:17→13:06)
[2019-07-09] MEDS ORDERED: MIDAZOLAM 2 MG/2 ML (VERSED) VIAL ONE (07:17)
[2019-07-09] MEDS ORDERED: ONDANSETRON 4 MG/2 ML (SDV) Z0FRAN ONE (07:18)
[2019-07-09] MEDS ORDERED: SEVOFLURANE (ULTANE) 15 ML INHAL SOLN ONE ×4 (07:18→13:50)
[2019-07-09 07:21] LABS: HEMOGLOBIN 15.8 G/DL (13.3-17.7); MEAN PLATELET VOLUME 10.5 FL (7.4-10.4); RED CELL DISTRIBUTION WIDTH 13.2 % (10.0-14.5); WHITE BLOOD COUNT 7.7 10^3/uL (4.3-11.0)
[2019-07-09] MEDS ORDERED: HYDR25TA4 PO (07:27)
[2019-07-09] MEDS ORDERED: PRAV20TA3 PO (07:27)
[2019-07-09] MEDS ORDERED: DRON400T2 PO (07:27)
[2019-07-09] MEDS ORDERED: SERT50TA9 PO (07:27)
[2019-07-09] MEDS ORDERED: DILT240T8 PO (07:27)
[2019-07-09 07:37] LABS: INR 1.9 (0.8-1.4)
[2019-07-09 07:46] LABS: ALANINE AMINOTRANSFERASE 23 U/L (0-55); ALBUMIN 4.2 GM/DL (3.2-4.5); ALKALINE PHOSPHATASE 67 U/L (40-136); BILIRUBIN,TOTAL 0.4 MG/DL (0.1-1.0); BUN/CREATININE RATIO 13; CALCIUM 9.6 MG/DL (8.5-10.1); CARBON DIOXIDE 25 MMOL/L (21-32); CHLORIDE 105 MMOL/L (98-107); GFR ESTIMATED > 60; GLUCOSE 107 MG/DL (70-105); POTASSIUM 3.9 MMOL/L (3.6-5.0); SODIUM 140 MMOL/L (135-145); TOTAL PROTEIN 7.5 GM/DL (6.4-8.2)
[2019-07-09] MEDS ORDERED: HEParin DRIP 25000 UNIT/500ML 500 ML IV ONE (08:51)
[2019-07-09] MEDS ORDERED: PHENYLEPHRINE 100 MCG/ML 10 ML (ANESTHESIA) SYR ONE (09:23)
[2019-07-09] MEDS ORDERED: LACTATED RINGERS 1,000 ML IV ONE ×2 (10:02→12:06)
[2019-07-09] MEDS ORDERED: HEParin (CATH LAB) 1,000 ML IV ONE (12:17)
--- NOTE | 2019-07-09 13:26 | Electrophysiology Procedure ---
EP Procedure DATE OF SERVICE:07/09/19 CARDIAC TOW TRUCK DRIVER: Blue Chandra MD, [facility] INDICATION: Persistent atrial fibrillation. Typical atrial flutter PREOPERATIVE DIAGNOSIS: Persistent atrial fibrillation. Typical atrial flutter POSTOPERATIVE DIAGNOSES: 1. Persistent atrial fibrillation, status post atrial fibrillation ablation with PVI, posterior box isolation. 2. Typical right atrial flutter, CTI dependent, status post right atrial flutter ablation. HISTORY: This is a 63-year-old gentleman with previous history of paroxysmal atrial fibrillation status post atrial fibrillation ablation in 12/04/2018 which was successful. The patient has a loop monitor which showed frequent episodes of atrial fibrillation on antiarrhythmic therapy. Therefore redo atrial fibrillation ablation was recommended. Implantable loop recorder interrogation showed typical atrial flutter therefore typical atrial flutter ablation is recommended as well. PROCEDURE PERFORMED: 1. Comprehensive EP study with induction. 2. Fluoroscopy. 3. Left atrial pacing and recording. 3. Drug infusion 4. Pulmonary vein isolation. 5. Additional atrial fibrillation ablation with roofline and posterior line. 6. Ablation of typical atrial flutter (CTI dependent). 7. Comprehensive 3D mapping with the carto system. 8. Intracardiac echocardiogram. 9. External cardioversion. COMPLICATION: None. ESTIMATED BLOOD LOSS: 10 mL. CONTRAST USED: None. FLUOROSCOPY TIME: 8.5 minutes. FLUOROSCOPY DOSE: 76 mgy. SPECIMENS: None. ANESTHESIA: Done by our anesthesia colleagues. ANTICOAGULATION: Xarelto, IV heparin. PROCEDURE IN DETAIL: After informed consent was taken, the patient was brought to the EP lab. Anesthesia was provided by our anesthesia colleagues. The patient was draped and prepped in the usual sterile fashion. The patient presented to the EP lab in atrial fibrillation rhythm.3D mapping was done with Carto system. Left atrial pacing and recording was also done. Access was gained in the right femoral vein with 8-Rwandan sheath and a 7F sheath. Left access in left femoral vein was gained with one 6F sheath and one 12F sheath. His catheter and ICE catheter was placed from the left femoral access. CS catheter was placed from right femoral access. Intracardiac echocardiogram was performed with an ICE catheter. Numerous images were taken of the RV, RA, left atrium and LV. There was no pericardial effusion. There was no thrombus in the left atrium or left atrial appendage. All 4 pulmonary veins were identified. A carto-sound map was created with the ice catheter. We then advanced a guidewire into the superior vena cava. A long sheath was advanced with the transseptal needle. Under fluoroscopic and echocardiogram guidance, transseptal puncture was done once through the fossa ovalis. Left atrial pressure was documented. IV heparin bolus was given followed by heparin infusion. ACT target over 350 seconds. Patient was on uninterrupted oral anticoagulation therapy. The transseptal needle was taken out and a PENTARAY mapping catheter was utilized to perform voltage mapping of the left atrium. Patient was in atrial flutter. Entrance block was confirmed in the Right pulmonary veins. Left pulmonary veins shows possible breakthrough near the juancho and posteriorly between the two veins. Ablation was performed at the juancho and posteriorly. The patient continued to be in atrial flutter therefore we proceeded with the roofline. and posterior line. CS catheter showed right sided origin of the atrial flutter. This was confirmed by pacing from distal to proximal with shorter PPI in the proximal electrodes. We then entrained from the CTI and the PPI was <10ms confirming right atrial flutter. We then performed cardioversion. We confirmed exit block from all four pulmonary veins and the posterior wall of the left atrium. Typical atrial flutter ablation was done. Bidirectional block was confirmed and reconfirmed after thirty minutes post ablation. Isuprel was given at 20mcg/min and rapid atrial pacing with no induction of AF or Atrial flutter. Final intracardiac echocardiogram images demonstrated no pericardial effusion. All the sheaths were taken out. 20 mg of IV protamine was given. Figure of 8 sutures were done in both venous access and manual compression done for 5 minutes. Hemostasis was achieved. Patient tolerated the procedure well and did not have any complications. The patient left the EP lab in sinus rhythm. Total ablation time 39 minutes and 24 seconds. PLAN: The patient will be observed overnight and will be discharged home tomorrow with precise followup instructions. Blue Chandra MD, [facility] Cardiac Electrophysiology Pavan CHANDRA MD Jul 09, 2019 13:26
[2019-07-09] MEDS ORDERED: PATIENT MAY USE OWN MEDS, ALL PO SCH (13:30)
[2019-07-09] MEDS ORDERED: NS IV 1000 ML 1,000 ML IV SCH (13:30)
--- NOTE | 2019-07-09 13:30 | History & Physicial-Cardiolgy ---
HPI-Cardiology Cardiology Consultation: Date of Consultation 07/09/19 Date of Admission Attending Physician Pavan Chandra MD Admitting Physician Tomasz Norman MD Consulting Physician Pavan CHANDRA MD HPI: Time Seen by a Provider: 08:30 Chief Complaint: Persistent atrial fibrillation This is a 63-year-old gentleman with previous history of paroxysmal atrial fibrillation. Atrial fibrillation ablation done on 12/04/2018. Successful pulmonary vein isolation however patient continued to have occasional episodes of atrial fibrillation. He was continued on antiarrhythmic therapy and oral anti-coag ablation. Review of Systems-Cardiology Review of Systems Constitutional: As described under HPI; No As described under HPI, No no symptoms reported, No chills, No fever, No lightheadedness Eyes: No As described under HPI, No no symptoms reported, No blindness, No blurred vision, No contact lenses, No drainage, No decreased acuity, No foreign body sensation, No pain, No vision change Ears/Nose/Throat: No As described under HPI, No no symptoms reported, No chronic hearing loss, No ear discharge, No ear pain, No nasal drainage, No u lcerations Respiratory: No no symptoms reported; As described under HPI; No As described under HPI, No cough, No orthopnea, No shortness of breath, No SOB with excertion Cardiovascular: No no symptoms reported; As described under HPI; No As described under HPI, No chest pain, No edema, No irregular heart rate, No lightheadedness; palpitations Gastrointestinal: No no symptoms reported, No As described under HPI, No abdomen distended, No abdominal pain, No blood streaked bowels, No constipation, No diarrhea, No nausea, No vomiting, No stool coloration changes Genitourinary: No As described under HPI, No burning, No dysuria, No discharge, No frequency, No flank pain, No hematuria, No urgency Skin: No rash, No skin related problems, No ulcerations Psychiatric/Neurological: No anxiety, No depression, No seizure, No focal weakness, No syncope Hematologic: No bleeding abnormalities AXB-Zqgmyx-Nvealy Hx Patient Social History Alcohol Use: Denies Use Recreational Drug Use: No Smoking Status: Former Smoker Type Used: Smokeless Tobacco 2nd Hand Smoke Exposure: No Recent Foreign Travel: No Immunizations Up To Date Tetanus Booster (TDap): More than 5yrs Date of Pneumonia Vaccine: Oct 26, 2011 Past Medical History PMH As described under Assessment. Family Medical History Family History: Diabetes mellitus 19 FATHER G8 BROTHER FH: cancer 19 MOTHER FHx: leukemia G8 SISTER Allergies and Home Medications Allergies Coded Allergies: Penicillins (Verified Adverse Reaction, swelling, itching, 08/10/11) Home Medications Diltiazem HCl 240 Mg Tab.er.24h, 240 MG PO DAILY, (Reported) Dronedarone HCl 400 Mg Tablet, 400 MG PO DAILY, (Reported) Hydrochlorothiazide 25 Mg Tablet, 25 MG PO DAILY, (Reported) Multivitamin with Minerals 1 Each Tablet, 1 TAB PO DAILY, (Reported) Pravastatin Sodium 20 Mg Tablet, 20 MG PO DAILY, (Reported) Quinapril HCl 40 Mg Tablet, 40 MG PO DAILY, (Reported) Rivaroxaban 20 Mg Tablet, 20 MG PO 1999, (Reported) Sertraline HCl 50 Mg Tablet, 50 MG PO DAILY, (Reported) Patient Home Medication List Home Medication List Reviewed: Yes Physical Exam-Cardiology Physical Exam Vital Signs/I&O 07/09/19 06:54 Temp 36.2 Pulse 76 Resp 14 B/P (MAP) 124/83 (97) Pulse Ox 97 O2 Delivery Room Air Capillary Refill : Constitutional: appears stated age; No apparent distress; well-developed, well- nourished HEENT: PERRL; No discharge; hearing is well preserved, oral hygience is good; No ulceration, No xanthelasmas are seen Neck: No carotid bruit; carotid pulses are 2 + bilaterally Respiratory: chest is bilaterally symmetric, lungs clear to auscultation Cardiovascular: regular rate-rhythm, tachycardia, S1 and S2 Gastrointestinal: soft, audible bowel sounds; No spleenomegaly Rectal: deferred Extremities: normal range of motion, non-tender, normal inspection; No clubbing, No cyanosis, No significant edema Neurologic/Psychiatric: no motor/sensory deficits, alert, normal mood/affect, oriented x 3, power is 5/5 both on sides Skin: normal color; No rash, No ulcerations Data Review Labs Laboratory Tests 07/09/19 07:12: White Blood Count 7.7, Red Blood Count 5.02, Hemoglobin 15.8, Hematocrit 47, Mean Corpuscular Volume 93, Mean Corpuscular Hemoglobin 32, Mean Corpuscular Hemoglobin Concent 34, Red Cell Distribution Width 13.2, Platelet Count 253, Mean Platelet Volume 10.5H, Prothrombin Time 23.0H, INR Comment 1.9H, Activated Partial Thromboplast Time 42H, Sodium Level 140, Potassium Level 3.9, Chloride Level 105, Carbon Dioxide Level 25, Anion Gap 10, Blood Urea Nitrogen 13, Creatinine 1.00, Estimat Glomerular Filtration Rate > 60, BUN/Creatinine Ratio 13, Glucose Level 107H, Calcium Level 9.6, Corrected Calcium 9.4, Total Bilirubin 0.4, Aspartate Amino Transf (AST/SGOT) 22, Alanine Aminotransferase (ALT/SGPT) 23, Alkaline Phosphatase 67, Total Protein 7.5, Albumin 4.2 ECG Impression ECG Initial ECG Impression: Atrial Fibrillation w/RVR A/P-Cardiology Assessment/Admission Diagnosis Persistent atrial fibrillation Typical atrial flutter Admission Status: Observation Plan Persistent atrial fibrillation ablation, Typical atrial flutter ablation is recommended. Pavan CHANDRA MD Jul 09, 2019 13:29
[2019-07-09] MEDS ORDERED: PROTAMINE 50 MG/5 ML VIAL ONE (13:32)
[2019-07-09] MEDS ORDERED: NEOSTIGMINE 3 MG/3 ML VIAL ONE (13:33)
[2019-07-09] MEDS ORDERED: GLYCOPYRROLATE 0.2 MG/ML (ROBINUL) 2 ML VIAL ONE (13:33)
--- NOTE | 2019-07-09 14:28 | Anesthesia-General Post-Op ---
General Patient Condition Mental Status/LOC: Same as Preop Cardiovascular: Satisfactory Nausea/Vomiting: Absent Respiratory: Satisfactory Pain: Controlled Complications: Absent Post Op Complications Complications None Follow Up Care/Instructions Patient Instructions None needed. Anesthesia/Patient Condition Patient Condition Patient is doing well, no complaints, stable vital signs, no apparent adverse anesthesia problems. No complications reported per nursing. JAZMIN VEGA CRNA Jul 09, 2019 14:28
[2019-07-09] MEDS ORDERED: HYDROmorphone 2 MG/ML VIAL (DILAUDID) IV ONE (14:30)
[2019-07-09] MEDS ORDERED: ONDANSETRON 4 MG/2 ML (SDV) Z0FRAN IVP PRN (14:30)
[2019-07-09] MEDS ORDERED: morphine INJ 10 MG/ML 1ML (SYR OR VIAL) IVP ONE (14:30)
[2019-07-09] MEDS ORDERED: PROMETHAZINE INJ 25 MG/ML (PHENERGAN) AMP IVP ONE (14:30)
[2019-07-09] MEDS ORDERED: MEPERIDINE (DEMEROL) INJ 50 MG/ML IVP ONE (14:30)
[2019-07-09] MEDS ORDERED: RIVAROXABAN 20 MG TABLET (XARELTO) PO SCH (17:00)
--- NOTE | 2019-07-09 18:24 | NUR ---
PT HAS ORDERS TO TAKE OWN HOME MEDS MEDICATIONS NOT HERE WITH PT AT TIME OF ARRIVAL. BROUGHT THEM IN. MULTAQ GIVEN BY AT THIS TIME.
[2019-07-10] VITALS (8 sets, daily range): BP systolic 142–158; BP diastolic 85–98
[2019-07-10 03:12] LABS: HEMOGLOBIN 13.7 G/DL (13.3-17.7); MEAN PLATELET VOLUME 10.2 FL (7.4-10.4); RED CELL DISTRIBUTION WIDTH 13.5 % (10.0-14.5); WHITE BLOOD COUNT 10.3 10^3/uL (4.3-11.0)
[2019-07-10 03:31] LABS: BUN/CREATININE RATIO 9; CALCIUM 8.7 MG/DL (8.5-10.1); CARBON DIOXIDE 23 MMOL/L (21-32); CHLORIDE 103 MMOL/L (98-107); CREATININE SERUM 0.85 MG/DL (0.60-1.30); GFR ESTIMATED > 60; GLUCOSE 105 MG/DL (70-105); POTASSIUM 3.7 MMOL/L (3.6-5.0); SODIUM 138 MMOL/L (135-145)
--- NOTE | 2019-07-10 09:24 | Cardiology Discharge Summary ---
Diagnosis/Chief Complaint Date of Admission 07/09/2019 Date of Discharge 07/10/2019 Admission Diagnosis Persistent atrial fibrillation, typical atrial flutter Final/Discharge Diagnosis Successful persistent atrial fibrillation ablation, typical atrial flutter ablation. Chief Complaint/HPI Chief Complaint/HPI This is a 63-year-old gentleman with previous history of paroxysmal atrial fibrillation. Atrial fibrillation ablation done on 12/04/2018. Successful pulmonary vein isolation however patient continued to have occasional episodes of atrial fibrillation. He was continued on antiarrhythmic therapy and oral anti-coag ablation. Discharge Summary Procedures Persistent atrial fibrillation ablation. Typical atrial flutter ablation. Non-inducible atrial fibrillation at the end of the procedure with rapid atrial pacing and maximum dose of Isuprel. Discharge Physical Examination Unremarkable. Hospital Course Was the Problem List Reviewed?: Yes Unremarkable. Pending Labs Laboratory Tests 07/10/19 02:55: White Blood Count 10.3, Red Blood Count 4.34, Hemoglobin 13.7, Hematocrit 42, Mean Corpuscular Volume 96, Mean Corpuscular Hemoglobin 32, Mean Corpuscular Hemoglobin Concent 33, Red Cell Distribution Width 13.5, Platelet Count 210, Mean Platelet Volume 10.2, Sodium Level 138, Potassium Level 3.7, Chloride Level 103, Carbon Dioxide Level 23, Anion Gap 12, Blood Urea Nitrogen 8, Creatinine 0. 85, Estimat Glomerular Filtration Rate > 60, BUN/Creatinine Ratio 9, Glucose Level 105, Calcium Level 8.7 Discussion & Recommendations Discussion The procedure was discussed with the patient. Discharge instructions were d iscussed. Patient will go back on the same medications including antiarrhythmic therapy and oral anticoagulation therapy. Follow up appt.: Follow-up on previously scheduled appointment. Dicharge Diet: Cardiac Diet Activity as Tolerated: Yes Home Medications Reviewed patient Home Medication Reconciliation performed by pharmacy medication reconciliations technician preventative medicine and/or nursing. Patients Allergies have been reviewed. Discharge Home Medications: Reviewed and agree with Discharge Medication list on patient's Discharge Instruction sheet Condition at discharge Stable. Instructions to patient/family Discussed with the patient. Pavan WESTON MD Jul 10, 2019 09:24
== END 2019-07-10 10:07 | disposition home or self-care (01) ==
LOC: CATH 06:51 → ICU 14:11 → CATH 07-10 10:07
PROVIDERS: ATTEND Internal Medicine Interventional Cardiology
DX: I48.0 Paroxysmal atrial fibrillation (principal); I48.3 Typical atrial flutter
CPT/HCPCS: 36415; 80048; 80053; 85027; 85347; 85610; 85730; 87081; 92960; 93005; 93613; 93623; 93653; 93656; 93657; 93662

== ENCOUNTER → 2020-03-20 | Outpatient (CLI) | payer BC ==
[~2020-03-20] MED LIST changes: +DILT240T8 PO; +SERT50TA9 PO
== END ==
LOC: CARD 08:30
PROVIDERS: ATTEND Internal Medicine Cardiovascular Disease
DX: I10 Essential (primary) hypertension (principal); I48.0 Paroxysmal atrial fibrillation; I51.7 Cardiomegaly; E78.2 Mixed hyperlipidemia
CPT/HCPCS: 93306

== ENCOUNTER → 2020-09-24 | Outpatient (CLI) | payer BC ==
[~2020-09-24] MED LIST changes: -DRON400T2 PO; +DRON400T6 PO; +SERT-413 PO; -SERT50TA9 PO
--- NOTE | 2020-09-24 14:50 | Diagnostic Imaging Report ---
PROCEDURE: CT abdomen and pelvis without contrast. TECHNIQUE: Multiple contiguous axial images were obtained through the abdomen and pelvis without the use of intravenous contrast. Auto Exposure Controls were utilized during the CT exam to meet ALARA standards for radiation dose reduction. INDICATION: Lower quadrant pain. History of hernia repairs. Compared with abdominal pelvic CT 06/24/2014 Postsurgical changes to the lower intra-abdominal wall where no regional or recurrent hernia is found. There is a chronic tiny fatty periumbilical hernia stable. No herniation of viscus. No acute abdominal wall pathology. There is a left hepatic lobe cyst mildly increased in size from prior. Additional smaller low-density hepatic foci appeared similar to the previous believed cystic as well. Gallbladder and bile ducts unremarkable. The spleen, adrenals and pancreas are unremarkable. There are no radiopaque kidney stones. There is no hydroureteronephrosis. The atherosclerotic aorta is nonaneurysmal. There is no ileus or bowel obstruction. Urinary bladder, prostate and seminal vesicles appeared unremarkable. There is no appendicitis. There is no diverticulitis. IMPRESSION: Intact lower abdominal wall, fatty periumbilical hernia, chronic scattered hepatic cyst showed no obvious change. No hydronephrosis or opaque stone. No acute appearing abnormality, obstruction, inflammatory process, ascites or fluid collections. Dictated by: Dictated on workstation # [id number]
== END ==
LOC: RAD 13:45
PROVIDERS: ATTEND Internal Medicine
DX: K42.9 Umbilical hernia without obstruction or gangrene (principal); K76.89 Other specified diseases of liver; M62.08 Separation of muscle (nontraumatic), other site; I48.0 Paroxysmal atrial fibrillation; R53.83 Other fatigue; Z98.890 Other specified postprocedural states
CPT/HCPCS: 74176

== ENCOUNTER → 2023-02-07 | Outpatient (CLI) | payer BC ==
[~2023-02-07] MED LIST changes: -QUIN40TA14 PO; +QUIN40TA34 PO; -QUIN5TAB11 PO; +QUIN5TAB26 PO
[2023-02-07 08:24] LABS: ALBUMIN 4.2 GM/DL (3.2-4.5); BILIRUBIN,TOTAL 0.5 MG/DL (0.1-1.0); CALCIUM 9.5 MG/DL (8.5-10.1); CREATININE SERUM 0.89 MG/DL (0.60-1.30); POTASSIUM 3.9 MMOL/L (3.6-5.0); TOTAL PROTEIN 7.4 GM/DL (6.4-8.2)
== END ==
LOC: LAB 07:27
PROVIDERS: ATTEND Internal Medicine Cardiovascular Disease
DX: E78.2 Mixed hyperlipidemia (principal); Z91.89 Other specified personal risk factors, not elsewhere classified
CPT/HCPCS: 36415; 80053; 80061; 84443